=== PATIENT | female | born 1930 | race Caucasian/White ===

== ENCOUNTER 2017-01-15 12:11 | Inpatient (IN) | payer MEDICARE ==
[2017-01-15] MEDS ORDERED: Protamine Sulfate 50 MG/5 ML VIAL ONE (13:02)
[2017-01-15] MEDS ORDERED: Heparin 5,000 UNITS/ML VIAL ONE (13:02)
[2017-01-15 13:19] LABS: #Basophils 0.1 thou/uL (0.0-0.2); #Eosinphils 0.1 thou/uL (0.0-0.7); #Lymphocytes 1.8 thou/uL (1.20-3.40); #Monocytes 0.5 thou/uL (0.11-0.59); #Neutrophils 2.3 thou/uL (1.40-6.50); %Basophils 1.2 % (0.0-1.0); %Eosinophils 1.1 % (0.0-10.0); %Lymphocytes 38.5 % (21.0-51.0); %Monocytes 11.2 % (0.0-10.0); Hematocrit 43.2 % (36.0-47.0); Mean Platelet Volume 6.9 fL (7.4-10.4); Red Blood Cell (RBC) Count 4.69 mill/uL (4.20-5.40); White Blood Cell (WBC) Count 4.7 thou/uL (4.8-10.8)
[2017-01-15] MEDS ORDERED: Midazolam HCl 2 mg/2 ml Vial ONE (13:40)
[2017-01-15] MEDS ORDERED: Fentanyl 250 MCG/5 ML VIAL ONE (13:40)
[2017-01-15 13:43] LABS: Anion Gap 11 mmol/L (10-20); BUN (Urea Nitrogen) 15 mg/dL (9.8-20.1); Calc. Creatinine Clearance 38 mL/min (70-130); Calcium 9.7 mg/dL (7.8-10.44); Carbon Dioxide 30 mmol/L (23-31); Chloride 104 mmol/L (98-107); Estimated GFR-MDRD 49
[2017-01-15] MEDS ORDERED: Labetalol HCl 100 MG/20 ML SYR ONE (14:05)
[2017-01-15] MEDS ORDERED: ePHEDrine/0.9% NaCl/PF SYRINGE 50 mg/10 ml ONE (14:05)
[2017-01-15] MEDS ORDERED: Propofol 200 MG/20 ML VIAL ONE (14:05)
[2017-01-15] MEDS ORDERED: Lidocaine 1% PF 5 ML VIAL ONE (14:05)
[2017-01-15] MEDS ORDERED: Glycopyrrolate 0.2 MG/ML 5 ML SYRINGE ONE (14:05)
[2017-01-15] MEDS ORDERED: Dexamethasone 20 MG/5 ML VIAL ONE (14:05)
[2017-01-15] MEDS ORDERED: Ondansetron HCl/PF 4 MG/2 ML Vial ONE (14:05)
[2017-01-15] MEDS ORDERED: Labetalol HCl 100 MG/20 ML VIAL ONE (15:01)
[2017-01-15] MEDS ORDERED: Promethazine HCl 25 MG/ML VIAL IM PRN ×2 (16:38→18:17)
[2017-01-15] MEDS ORDERED: Ondansetron HCl/PF 4 MG/2 ML Vial IVP PRN ×2 (16:38→18:17)
[2017-01-15] MEDS ORDERED: Promethazine HCl 25 MG/ML VIAL SLOW IVP PRN (16:38)
[2017-01-15] MEDS ORDERED: DOPamine 400 MG/D5W 250 ML 250 ML IVPB PRN (18:17)
[2017-01-15] MEDS ORDERED: Phenylephrine 10 MG/NS 250 ML 250 ML IVPB PRN (18:17)
[2017-01-15] MEDS ORDERED: Acetaminophen 325 MG TAB PO PRN (18:17)
[2017-01-15] MEDS ORDERED: Nitroglycerin 50 MG/250 ML BOT 250 ML IVPB PRN (18:17)
[2017-01-15] MEDS ORDERED: Insulin Regular 300 UNITS/3 ML VIAL SC PRN (18:17)
[2017-01-15] MEDS ORDERED: Sodium Chloride 0.9% 1,000 ML IV SCH (18:17)
[2017-01-15] MEDS ORDERED: HYDROcodone/Acetaminophen 5/325 mg Tablet PO PRN ×2 (18:17)
[2017-01-15] MEDS ORDERED: Morphine Sulfate 2 MG/ML SYRINGE SLOW IVP PRN ×2 (18:17)
[2017-01-15] MEDS ORDERED: Fentanyl 100 MCG/2 ML VIAL SLOW IVP PRN ×2 (18:17)
[2017-01-15 18:41] VITALS: BMI 22.4
--- NOTE | 2017-01-15 19:36 | OP ---
PREOPERATIVE DIAGNOSIS: Severe to critical right coronary artery stenosis. SURGEON: Unruly Hwang M.D. SIGN ERECTOR: None. POSTOPERATIVE DIAGNOSIS: Severe to critical right coronary artery stenosis. COUNTS: Sponge and needle counts Correct. ANESTHESIA: General. OPERATION PERFORMED: Right carotid endarterectomy with bovine pericardium patch angioplasty. FINDINGS AT OPERATION: Near occlusive calcified and friable plaque involving the bulb and proximal ICA. Additionally, extensive calcified plaque involved the distal 4-5 cm of the common carotid artery. PROCEDURE IN DETAIL: The patient was taken to the operating room. Following the induction of general endotracheal anesthesia, the patient was prepped and draped in the usual sterile fashion. Skin incision was made parallel to the anterior border of the sternocleidomastoid muscle and deepened through the subcutaneous tissues and platysma. Carotid sheath was entered, identifying the vagus nerve in its proper posterior position. Isolation of the CCA, ECA, and ICA was performed. Hypoglossal nerve was visualized, however, not manipulated. Heparin dose was given. Fine vascular clamps were applied to the above- mentioned vessels. Arteriotomy was created extending across the bulb and ICA to a point above the plaque. The #12 shunt was employed. The arteriotomy had to be carried down the common carotid artery to a point below the nonocclusive but calcified plaque to permit clamping. Endarterectomy was then performed in standard fashion. An excellent feathering point was achieved in the ICA, however, posterior intima was tacked with two 7-0 Prolene sutures. Meticulous attention was made to retrieving all residual debris including before and after irrigation with heparinized saline. The arteriotomy was then closed with the bovine pericardium patch and running 6-0 Prolene suture. Prior to securing the patch the shunt was removed, the ICA backflushed, and the site again irrigated with heparinized saline. Clamps were removed from the ECA, CCA, and ICA in that order. Heparin was partially reversed with protamine. Copious irrigation was performed. Meticulous hemostasis was assured. Incision was then closed in layers with running 2-0 Vicryl sutures followed by skin closure with a 4-0 Vicryl subcuticular stitch. Dermabond was applied. The patient was subsequently awakened and taken to the recovery room. Blood loss negligible. MTDD
[2017-01-15] MEDS ORDERED: Clopidogrel Bisulfate 75 MG TAB PO SCH (20:00)
[2017-01-15] MEDS: Clindamycin/D5W 900 MG in Premix Bag 1 BAG IVPB SCH (20:43)
[2017-01-15] MEDS ORDERED: Atorvastatin Calcium 40 MG TAB PO SCH (21:00)
[2017-01-16] MEDS: Clindamycin/D5W 900 MG in Premix Bag 1 BAG IVPB SCH ×2 (01:15→08:25)
[2017-01-16 07:26] VITALS: TEMP 98.2
[2017-01-16] MEDS ORDERED: Ferrous Sulfate 325 MG TAB PO SCH (08:00)
[2017-01-16 08:34] VITALS: BP 157/79
[2017-01-16] MEDS ORDERED: Clopidogrel Bisulfate 75 MG TAB PO SCH (09:00)
[2017-01-16] MEDS ORDERED: CLOPIDOGREL BISULFATE PO SCH (09:00)
[2017-01-16] MEDS ORDERED: Cyanocobalamin (Vitamin B-12) 1,000 MCG TAB PO SCH (09:00)
[2017-01-16] MEDS ORDERED: Aspirin 325 mg Enteric Coated Tablet PO SCH (09:00)
[2017-01-16] MEDS ORDERED: Aspirin 325 MG TAB PO SCH (09:00)
[2017-01-16] MEDS ORDERED: Lisinopril 20 MG TAB PO SCH (09:00)
[2017-01-16] MEDS ORDERED: Furosemide 20 MG TAB PO SCH (09:00)
--- NOTE | 2017-01-16 12:13 | DIS ---
REASON FOR ADMISSION: Right carotid endarterectomy. CLINICAL RESUME: The patient is an 86-year-old female found to have severe bilateral carotid artery disease. Recommendation was made to proceed with staged repairs. Yesterday, she was admitted and underwent right CEA with bovine pericardium patch angioplasty. See operative report for details. H er postoperative course has been unremarkable and as of today, she was considered stable for dischar ge. Follow up will be arranged in our office in 2 weeks or sooner p.r.n. DIET: 1800 calorie ADA. ACTIVITY: Light for the next 4-5 days. WOUND CARE: As instructed. MEDICATIONS: She is to resume her complete home regimen without change. This includes a daily aspi rin and Plavix.
== END 2017-01-16 10:52 | disposition home or self-care (01) | DRG 39 ==
LOC: SURG A 12:11 → CCU 17:42
PROVIDERS: ADMIT Thoracic Surgery (Cardiothoracic Vascular Surgery); ATTEND Thoracic Surgery (Cardiothoracic Vascular Surgery)
PROC: 03CK0ZZ Extirpation of Matter from Right Internal Carotid Artery, Open Approach (ICD-10-PCS; principal; 2017-01-15)
PROC: 03CH0ZZ Extirpation of Matter from Right Common Carotid Artery, Open Approach (ICD-10-PCS; 2017-01-15)
PROC: 03UK0KZ Supplement Right Internal Carotid Artery with Nonautologous Tissue Substitute, Open Approach (ICD-10-PCS; 2017-01-15)
DX: I65.23 Occlusion and stenosis of bilateral carotid arteries (principal); I48.0 Paroxysmal atrial fibrillation; E11.9 Type 2 diabetes mellitus without complications; I10 Essential (primary) hypertension; I25.10 Atherosclerotic heart disease of native coronary artery without angina pectoris; E78.5 Hyperlipidemia, unspecified
CPT/HCPCS: 36415; 36416; 80048; 85025; J0360; J1100; J1644; J2001; J2250; J2405; J2704; J2720; J3010; J3490; J7050

== ENCOUNTER 2017-02-27 09:13 | Inpatient (IN) | payer MEDICARE ==
[2017-02-28] MEDS ORDERED: Levofloxacin 500 mg/D5W 100 ml Premix Bag ONE (06:31)
[2017-02-28] MEDS ORDERED: Clindamycin/D5W 900 mg/50 ml Premix Bag ONE (06:31)
[2017-02-28] MEDS ORDERED: Heparin 5,000 UNITS/ML VIAL ONE (06:38)
[2017-02-28] MEDS ORDERED: Protamine Sulfate 50 MG/5 ML VIAL ONE (06:38)
[2017-02-28] MEDS ORDERED: Fentanyl 100 MCG/2 ML VIAL ONE (06:58)
[2017-02-28] MEDS ORDERED: hydrALAZINE 20 MG/ML VIAL ONE (09:51)
[2017-02-28] MEDS ORDERED: Promethazine HCl 25 MG/ML VIAL IM PRN ×2 (10:15→11:18)
[2017-02-28] MEDS ORDERED: Promethazine HCl 25 MG/ML VIAL SLOW IVP PRN (10:15)
[2017-02-28] MEDS ORDERED: Ondansetron HCl/PF 4 MG/2 ML Vial IVP PRN ×2 (10:15→11:18)
[2017-02-28] MEDS ORDERED: Insulin Regular 300 UNITS/3 ML VIAL SC PRN (11:18)
[2017-02-28] MEDS ORDERED: Phenylephrine 10 MG/NS 250 ML 250 ML IVPB PRN (11:18)
[2017-02-28] MEDS ORDERED: Nitroglycerin 50 MG/250 ML BOT 250 ML IVPB PRN (11:18)
[2017-02-28] MEDS ORDERED: Acetaminophen 325 MG TAB PO PRN (11:18)
[2017-02-28] MEDS ORDERED: Fentanyl 100 MCG/2 ML VIAL SLOW IVP PRN ×2 (11:18)
[2017-02-28] MEDS ORDERED: HYDROcodone/Acetaminophen 5/325 mg Tablet PO PRN ×2 (11:18)
[2017-02-28] MEDS ORDERED: DOPamine 400 MG/D5W 250 ML 250 ML IVPB PRN (11:18)
[2017-02-28] MEDS: Clindamycin/D5W 900 MG in Premix Bag 1 BAG IVPB SCH ×2 (11:50→17:41)
[2017-02-28] MEDS: Sodium Chloride 0.9% 1,000 ML IV SCH (11:56)
[2017-02-28] MEDS: hydrALAZINE 20 MG/ML VIAL SLOW IVP PRN (11:59)
[2017-02-28] MEDS ORDERED: Morphine 2 mg/2ml in 0.9% NaCl PF SYRINGE IVP PRN (12:00)
[2017-02-28 12:11] VITALS: BMI 22.6
--- NOTE | 2017-02-28 12:46 | OP ---
PREOPERATIVE DIAGNOSIS: Severe left carotid artery stenosis. SURGEON: Unruly Hwang M.D. PIT CLERK: None. POSTOPERATIVE DIAGNOSIS: Severe left carotid artery stenosis. SPONGE AND NEEDLE COUNTS: Correct. ANESTHESIA: General. OPERATION PERFORMED: Left carotid endarterectomy with bovine pericardium patch angioplasty. FINDINGS AT OPERATION: Calcified plaque involving the bulb and proximal ICA. DESCRIPTION OF OPERATION: The patient was taken to the operating room. Following the induction of general endotracheal anesthesia, the patient was prepped and draped in the usual sterile fashion. Skin incision was made parallel to the anterior border of the sternocleidomastoid muscle and deepened through the subcutaneous tissues and platysma. Carotid sheath was entered, identifying the vagus nerve in its proper posterior position. Isolation of the CCA, ECA, and ICA was performed. Hypoglossal nerve was visualized, however, not manipulated. Common facial vein was divided between fine silk ties and Hemoclips. Bifurcation was notably high as expected based on the CTA. Heparin dose was given. Fine vascular clamps were applied to the above-mentioned vessels. Arteriotomy was created across the bulb and ICA to a point above the plaque. The #12 shunt was employed. Endarterectomy was then performed in standard fashion. An excellent feathering point was achieved in the ICA requiring no tacking sutures. Meticulous attention was made to retrieving all residual debris including before and after irrigation with heparinized saline. The arteriotomy was then closed with the bovine pericardium patch and running 6- 0 Prolene suture. Prior to securing the patch the shunt was removed, the ICA backflushed, and the site again irrigated with heparinized saline. Clamps were removed from the ECA, CCA, and ICA in that order. Heparin was partially reversed with protamine. Copious irrigation was performed. Meticulous hemostasis was assured. Wound was then closed in layers with running 2-0 Vicryl sutures followed by skin closure with a 4-0 Monocryl subcuticular stitch. Dermabond was applied. The patient was subsequently awakened, extubated, and taken to recovery room. Blood loss negligible. MTDD
[2017-02-28] MEDS: hydrALAZINE 25 MG TAB PO SCH ×3 (13:22→21:05)
[2017-02-28] MEDS: metFORMIN 500 MG TAB PO SCH (16:33)
[2017-02-28] MEDS ORDERED: Atorvastatin Calcium 40 MG TAB PO SCH (21:00)
[2017-03-01] MEDS: hydrALAZINE 20 MG/ML VIAL SLOW IVP PRN ×2 (00:17→06:17)
[2017-03-01] MEDS: Clindamycin/D5W 900 MG in Premix Bag 1 BAG IVPB SCH ×2 (00:18→05:04)
[2017-03-01] MEDS: Sodium Chloride 0.9% 1,000 ML IV SCH (00:18)
[2017-03-01 00:21] VITALS: BP 160/44
[2017-03-01 07:25] VITALS: TEMP 98.1
[2017-03-01] MEDS: hydrALAZINE 25 MG TAB PO SCH (07:48)
[2017-03-01] MEDS: metFORMIN 500 MG TAB PO SCH (07:49)
[2017-03-01] MEDS ORDERED: Ferrous Sulfate 325 MG TAB PO SCH (08:00)
[2017-03-01] MEDS ORDERED: Clopidogrel Bisulfate 75 MG TAB PO SCH (09:00)
[2017-03-01] MEDS ORDERED: Lisinopril 20 MG TAB PO SCH (09:00)
[2017-03-01] MEDS ORDERED: Cyanocobalamin (Vitamin B-12) 1,000 MCG TAB PO SCH (09:00)
[2017-03-01] MEDS ORDERED: Aspirin 325 MG TAB PO SCH (09:00)
[2017-03-01] MEDS ORDERED: Furosemide 20 MG TAB PO SCH (09:00)
--- NOTE | 2017-03-01 14:22 | DIS ---
REASON FOR ADMISSION: Left carotid endarterectomy. CLINICAL RESUME: The patient is an 86-year-old female found to have severe bilateral carotid artery disease. She underwent right CEA with bovine pericardium patch angioplasty on 01/15/2017. Yesterday, she was admitted and underwent left CEA with bovine pericardium patch angioplasty. See operative report for details. Her postoperative course has been unremarkable and as of today, she was considered stable for discharge. Follow up will be arranged in my office in 2 weeks or sooner p.r.n. DIET: 1800-calorie ADA. WOUND CARE: As instructed. ACTIVITY: Light for the next 4-5 days. DISCHARGE MEDICATIONS: She is to resume her completed home regimen without change. This includes daily 325 mg Ecotrin and Plavix 75 mg. MTDD
== END 2017-03-01 09:45 | disposition home or self-care (01) | DRG 39 ==
LOC: EDSTATUS 14:51 → SURG A 02-28 05:54 → CCU 02-28 10:20
PROVIDERS: ADMIT Thoracic Surgery (Cardiothoracic Vascular Surgery); ATTEND Thoracic Surgery (Cardiothoracic Vascular Surgery)
PROC: 03CL0ZZ Extirpation of Matter from Left Internal Carotid Artery, Open Approach (ICD-10-PCS; principal; 2017-02-28)
PROC: 03UL0KZ Supplement Left Internal Carotid Artery with Nonautologous Tissue Substitute, Open Approach (ICD-10-PCS; 2017-02-28)
DX: I65.22 Occlusion and stenosis of left carotid artery (principal); E11.51 Type 2 diabetes mellitus with diabetic peripheral angiopathy without gangrene; I48.0 Paroxysmal atrial fibrillation; Z98.890 Other specified postprocedural states; Z95.1 Presence of aortocoronary bypass graft; Z79.02 Long term (current) use of antithrombotics/antiplatelets; Z79.82 Long term (current) use of aspirin; I25.10 Atherosclerotic heart disease of native coronary artery without angina pectoris; I10 Essential (primary) hypertension; E78.5 Hyperlipidemia, unspecified
CPT/HCPCS: 36416; J0360; J1642; J1644; J1956; J2405; J2720; J3010; J3490

== ENCOUNTER 2017-09-09 12:49 | Inpatient (IN) | payer MEDICARE ==
[2017-09-09 13:24] LABS: #Lymphocytes 1.1 thou/uL (1.20-3.40); #Monocytes 0.9 thou/uL (0.11-0.59); #Neutrophils 16.1 thou/uL (1.40-6.50); %Basophils 0.2 % (0.0-1.0); %Lymphocytes 6.2 % (21.0-51.0); %Monocytes 4.7 % (0.0-10.0); %Neutrophils 88.9 % (42.0-75.0); Mean Corpuscular HGB CONC 34.4 g/dL (32.0-36.0); Mean Corpuscular Hemoglobin 29.8 pg (27.0-31.0); Mean Corpuscular Volume 86.6 fl (81.0-99.0); Mean Platelet Volume 7.6 fL (7.4-10.4); Platelet Count 313 thou/uL (130-400); RBC Distribution Width 12.3 % (11.5-14.5); Red Blood Cell (RBC) Count 5.38 mill/uL (4.20-5.40); White Blood Cell (WBC) Count 18.1 thou/uL (4.8-10.8)
[2017-09-09 13:56] LABS: Bilirubin Small (Negative); Blood, Urine Moderate (Negative); Clarity Cloudy (Clear); Glucose, Urine (Dipstick) 100 mg/dL (Negative); Leukocyte Trace (Negative); Nitrite Negative (Negative); Protein, Urine (Dipstick) > or equal to 300 mg/dL (Neg-Trace); Urobilinogen 0.2 mg/dL (0.2-1.0)
[2017-09-09 13:58] LABS: PTT 23.9 SEC (22.9-36.1); Prothrombin Time 13.6 SEC (12.0-14.7)
[2017-09-09 14:07] LABS: Anion Gap 26 mmol/L (10-20); BUN (Urea Nitrogen) 58 mg/dL (9.8-20.1); CK (CPK) 375 U/L (29-168); Calc. Creatinine Clearance 0 mL/min (70-130); Calcium 9.5 mg/dL (7.8-10.44); Carbon Dioxide 20 mmol/L (23-31); Chloride 95 mmol/L (98-107); Estimated GFR-MDRD 13; Glucose 526 mg/dL (83-110); Potassium 4.3 mmol/L (3.5-5.1); Sodium 137 mmol/L (136-145)
[2017-09-09 14:08] LABS: Specific Gravity, Urine 1.022 (1.002-1.036)
--- NOTE | 2017-09-09 14:08 | RAD ---
PORTABLE AP CHEST X-RAY: 09/09/2017 HISTORY: Altered mental status. The patient was found on the bathroom floor. Confusion. COMPARISON: None available. FINDINGS: Post surgical changes related to CABG are noted. The cardiac silhouette and pulmonary vasculature ar e within normal limits. Calcifications overly each lung apex, which could be related to vascular harley cifications or possibly calcified pleural thickening. Calcified granuloma overlies the lateral right mid lung zone. Vascular calcifications overly the right axillary region, as well as involve the tho racic aorta. Mild degenerative changes are seen in the spine. IMPRESSION: No acute cardiopulmonary process. POS: [facility]
--- NOTE | 2017-09-09 14:10 | CT ---
BRAIN CT WITHOUT IV CONTRAST: HISTORY: An 87-year-old female with altered mental status. Patient found on bathroom floor. FINDINGS: Bilateral atrophy and chronic white matter ischemic changes. There are a few punctate lacunar infarc ts. No mass or midline shift. No intraaxial or extraaxial hemorrhage. IMPRESSION: Atrophy and chronic white matter ischemic change. No mass, bleed, or other acute process. POS: [facility]
[2017-09-09 14:11] LABS: Bacteria/HPF 4+ HPF (None Seen); WBC/HPF 21-50 HPF (0-3)
[2017-09-09 14:12] LABS: Crystals/HPF 2+ AMORPH URATES HPF (Negative)
[2017-09-09 14:12] LABS: CKMB 11.4 ng/mL (0-6.6); Troponin I 1.102 ng/mL (< 0.028)
[2017-09-09 14:13] LABS: Hyaline Casts/LPF 0-3 HYALINE CAST LPF (0-3 Hyaline); Other Casts/LPF 4-6 COARSE GRAN LPF (0-3 Hyaline)
[2017-09-09] MEDS ORDERED: Insulin Regular 300 UNITS/3 ML VIAL ONE (14:16)
[2017-09-09] MEDS ORDERED: Aspirin 325 MG TAB ONE (14:16)
[2017-09-09] MEDS ORDERED: Ciprofloxacin Lactate/D5W 400 mg/200 ml Premix ONE (14:25)
--- NOTE | 2017-09-09 14:25 | CT ---
CERVICAL SPINE CT WITHOUT IV CONTRAST: History: 87-year-old female with history of altered mental status, found on floor in bathroom. FINDINGS: Multilevel disc osteophytosis and facet arthrosis, evidence for spondylosis. Prominent vascular calci fications. Surgical clips in neck regions. No evidence for acute fracture or facet dislocation. Focal disc osteophyte centrally at C4-5 with some up to moderate canal, lateral recess, and foraminal sten osis at C5-6 and C6-7. Multiple low attenuation nodules in both right and left lobes of thyroid up to 1.1 cm on the left side. IMPRESSION: No acute fracture or facet dislocation. Cervical spondylosis with some variable severity multilevel c anal, lateral recess, and foraminal stenosis. Multiple nodules in right and left lobes of the thyroid up to 1.1 cm on the left. POS: [facility]
[2017-09-09] MEDS ORDERED: Ondansetron HCl/PF 4 MG/2 ML Vial IVP PRN ×2 (16:20→18:29)
[2017-09-09] MEDS ORDERED: Ondansetron ODT 4 MG TAB SL PRN (16:20)
[2017-09-09] MEDS ORDERED: Acetaminophen 325 MG TAB PO PRN (16:20)
[2017-09-09] MEDS ORDERED: Sodium Chloride 0.9% 1,000 ML IV SCH (16:20)
[2017-09-09 16:31] VITALS: BMI 22.9
[2017-09-09] MEDS ORDERED: Dextrose 50% Abboject 50 ML SYRINGE SLOW IVP PRN (17:00)
[2017-09-09] MEDS ORDERED: HumaLOG 300 UNITS/3 ML VIAL SC PRN (17:00)
[2017-09-09] MEDS ORDERED: Dextrose 5% in Water 1,000 ML IV PRN (17:00)
[2017-09-09] MEDS: Sodium Chloride 0.9% 1,000 ML IV SCH (18:08)
[2017-09-09] MEDS: HumaLOG 300 UNITS/3 ML VIAL SC PRN (18:15)
[2017-09-09 18:20] LABS: Troponin I 0.826 ng/mL (< 0.028)
[2017-09-09] MEDS ORDERED: Senokot 8.6 MG TAB PO PRN ×2 (18:29→18:31)
[2017-09-09] MEDS ORDERED: Calcium Carbonate 500 MG ChewTAB PO PRN (18:29)
[2017-09-09] MEDS ORDERED: Mag-Al 1200 mg/1200 mg/30 ML UDCUP PO PRN (18:29)
[2017-09-09] MEDS ORDERED: Bisacodyl 5 MG TAB PO PRN ×2 (18:29→18:31)
[2017-09-09] MEDS ORDERED: Benzonatate 100 MG CAP PO PRN (18:31)
[2017-09-09] MEDS ORDERED: Diabetic Tussin 200 MG/10 ML UDCUP PO PRN (18:31)
[2017-09-09] MEDS ORDERED: Loratadine 10 MG TAB PO PRN (18:31)
[2017-09-09] MEDS ORDERED: hydrALAZINE 20 MG/ML VIAL SLOW IVP PRN (18:31)
--- NOTE | 2017-09-09 19:31 | HP ---
PRIMARY CARE PHYSICIAN: Nessa Bo MD CHIEF COMPLAINT: Found down on the floor, slurred speech, altered mental status. HISTORY OF PRESENTING ILLNESS: Ms. Mireles is a pleasant 87-year-old female with history of hypertens ion; diabetes type 2; chronic anemia; peripheral vascular disease; and history of coronary artery dis ease, status post bypass surgery in 1994 who presented to the emergency room in [place] with the above-mentioned complaint. Ms. Mireles was brought in by her son to the [place] Emergency Room today after he found her o n the floor in the bathroom today. He reports that normally she is very active and alert, oriented x 3, but when he checked on her this morning, she was found down on the floor and was having some confu barbara. He brought her to the emergency room. He also reported some slurred speech when he found her. The patient is unable to give any history as she still is having some difficulty recalling the even ts, but the patient and the son they both report that she has been in her usual health up until this morning. She denies any recent illnesses, fever, chills, cough, nausea, vomiting, diarrhea, abdomina l pain. She denies any dysuria, frequency, or urgency. In the emergency room upon presentation, she was hemodynamically stable with a blood pressure of 152/ 65, pulse of 87, and saturating 95% on room air. Her initial workup included a CT scan of the brain, which did not show any acute abnormality. A chest x-ray was also done, which was negative for any a cute processes. CT scan of the cervical spine was also unremarkable. She was however found to have multiple lab abnormalities including leukocytosis with a WBC count of 18.1 and serum chemistry showin g acute renal insufficiency with a BUN of 58 and creatinine of 3.47. The patient does not have any h istory of chronic kidney disease per se. Her blood sugar was found to be elevated at 526 and her CK- MB and troponin as well as total creatinine kinase was elevated. There was also some concern of stro ke. The patient received aspirin and ciprofloxacin in the emergency room and was transferred to our facility for admission for above-mentioned complaints and further workup. PAST MEDICAL HISTORY: 1. Hypertension. 2. History of peripheral vascular disease, status post carotid endarterectomy bilaterally by Dr. Eris alcazar. 3. History of coronary artery disease, status post CABG in 1994. 4. Chronic anemia. 5. History of cellulitis in right lower extremity. 6. Dyslipidemia. PAST SURGICAL HISTORY: 1. Bilateral carotid endarterectomy, 2017. 2. Stenting in the left leg. 3. Open heart surgery in 1994. 4. Back surgery in 1992. PSYCHIATRIC HISTORY: No anxiety or depression. SOCIAL HISTORY: She lives by herself and is normally able to take care of her ADLs and IADLs. Famil y lives close by. She uses a cane to walk around and is active in the society. Has no history of dr galvan, tobacco, or alcohol abuse. FAMILY HISTORY: No significant family history of stroke or coronary artery disease. ALLERGIES: CODEINE, PENICILLIN, SULFONAMIDE. CURRENT MEDICATIONS: Further need to be confirmed, but as per the ER record, Lasix 20 mg daily; chanel nopril 20 mg b.i.d.; Plavix 75 mg daily; isosorbide dinitrate 120 mg daily; atorvastatin 40 mg daily; ferrous sulfate 325 mg daily; vitamin B12, 1000 mcg daily; hydralazine 50 mg 4 times a day; Glucotro l XL 2.5 mg daily. REVIEW OF SYSTEMS: It is a little bit difficult to obtain as the patient is still somewhat altered, but a 12-point review of systems is done and negative except for those mentioned in the history and p hysical. Constitutional: Weight loss or gain, ability to conduct usual activities. Skin: Rash, itching. Eyes: Double vision, pain. ENT/Mouth: Nose bleeding, neck stiffness, pain, tenderness. Cardiovascular: Palpitations, dyspnea on exertion, orthopnea. Respiratory: Shortness of breath, wheezing, cough, hemoptysis, fever or night sweats. Gastrointestinal: Poor appetite, abdominal pain, heartburn, nausea, vomiting, constipation, or diarrhea. Genitourinary: Urgency, frequency, dysuria, nocturia. Musculoskeletal: Pain, swelling. Neurologic/Psychiatric: Anxiety, depression. Allergy/Immunologic: Skin rash, bleeding tendency. LABORATORY DATA: CBC shows WBC at 18.1 with 88% neutrophils, otherwise unremarkable. Her serum chem istry showed chloride of 95, bicarbonate 20, anion gap of 26, BUN 58, creatinine 3.47, blood sugar 52 6 with repeat blood sugar of 257, creatinine kinase 375, CK-MB 11.4, and troponin 1.102 with repeat t roponin of 0.826. Chest x-ray by my review has no evidence to suggest pulmonary infiltrate, effusion, or edema. CT sca n of the brain by my review has no acute hemorrhage or infarction. Twelve-lead EKG by my review has some ST depression in the lateral leads, sinus rhythm at 88 beats per minute. PHYSICAL EXAMINATION: VITAL SIGNS: Most recent vital signs, temperature 98.8, pulse of 84, respirations 16, saturating 94% on room air, blood pressure 152/70. GENERAL: No acute distress. She is awake, oriented to self and place. She is able to answer simple question and follow the simple commands. She is still having difficulty focusing on the question as ked. HEENT: Mucous membranes are slightly dry. No oropharyngeal exudate or erythema. Head is normocepha lic, atraumatic. Pupils equal, reactive to light and accommodation. Extraocular movement intact. NECK: Supple without any lymphadenopathy, JVD, or bruit. CHEST: Clear to auscultation without any wheezing, rales, or rhonchi. CARDIOVASCULAR: Rate and rhythm is regular without any murmur, rubs, or gallops. ABDOMEN: Slightly tender to palpation diffusely. EXTREMITIES: Free of any cyanosis, clubbing, or edema. NEUROLOGIC: Nonfocal. She is oriented to self and place. PSYCHIATRIC: No anxiety or depression. Normal affect. SKIN: Free of any rashes or bruises. Feel warm and dry to touch. VASCULAR: +2 pedal pulses felt bilaterally. IMPRESSION AND PLAN: 1. Altered mental status, likely multifactorial. The patient's blood work suggest significant dehyd ration along with a urinary tract infection. Cardiac and urological etiology also cannot be ruled ou t. She will be admitted for further workup on the telemetry floor. We will obtain an MRI of the bra in to rule out acute ischemic stroke. Further workup would depend upon the results of the various bl ood work and imaging studies. She seems to be returning back to her baseline. To complete the natalee p of the stroke, we will also order transthoracic echocardiogram and carotid Doppler ultrasound. 2. Kes-PJ-krvazbees myocardial infarction, likely secondary to acute rhabdomyolysis and sepsis from urinary tract infection. Continue to trend serial cardiac enzyme and we will order an echocardiogram . We will also request consultation with Cardiology given her history of coronary artery disease in the past. We will continue her on aspirin as well as isosorbide, statin, and Plavix for now. Hold l isinopril in the light of acute renal insufficiency. 3. Sepsis, likely secondary to urinary tract infection. We will start her on IV antibiotics. Urine culture and blood cultures have been obtained and we will follow the results. 4. Acute renal insufficiency, most likely secondary to dehydration and urinary tract infection. Her baseline renal function was 1.09 in 01/2017. Likely this is all acute in origin. We will start her on intravenous fluids and monitor her renal function closely. Avoid any nephrotoxic agents. We himanshu rey also request consultation with Nephrology for further recommendations. 5. Hyperglycemia. Once again, secondary to dehydration likely. We will start her on IV fluids and insulin sliding scale and continue her glipizide and monitor Accu-Cheks closely. 6. Rhabdomyolysis, mild, likely secondary to fall. Continue IV fluids and monitor. 7. Fall. She will be on fall precautions while here. We will have OT and PT evaluate her as well. 8. History of hypertension. Restart home medication except for lisinopril given acute kidney injury and monitor closely. Add p.r.n. antihypertensives. 9. History of coronary artery disease. Continue her home medication as above along with aspirin. 10. History of peripheral vascular disease. Continue aspirin and Plavix. 11. Code status: FULL CODE as discussed with the son. The patient is not able to provide any speci fic answer to this question and it is very confusing for her. The son wants everything done to save his mother's life. 12. PRN medication orders and supportive care. 13. Deep venous thrombosis and gastrointestinal prophylaxis. DISPOSITION: Ms. Mireles is currently being admitted to the hospital for hyperglycemia, acute renal i nsufficiency, dehydration, and [id number] myocardial infarction likely secondary to sepsis. Es timated length of stay is at least 2-3 midnights. Further management will depend upon her clinical c ourse.
[2017-09-09] MEDS ORDERED: Amlodipine 10 MG TAB PO SCH (20:15)
[2017-09-09 20:27] LABS: Critical Call Chem Troponin I RESULT DECREASING; Troponin I 0.763 ng/mL (< 0.028)
[2017-09-09] MEDS: Heparin 5,000 UNITS/ML VIAL SC SCH (20:28)
[2017-09-09] MEDS ORDERED: Prevnar 13-Val Conj/PF 0.5 ML SYRINGE IM ONE (21:00)
[2017-09-09] MEDS ORDERED: Atorvastatin Calcium 40 MG TAB PO SCH (21:00)
--- NOTE | 2017-09-09 21:45 | ULT ---
CAROTID DOPPLER: 09/09/17 Ultrasound and doppler studies performed on the extracranial carotid arteries. Color doppler with spe ctral analysis and velocity recordings obtained. INDICATIONS: Stroke. Intimal thickening and exiting plaque seen in both extracranial carotid systems. No increased velocit ies recorded in either internal carotid artery. Increased velocities are recorded in both external ca rotid arteries. The vertebral arteries show antegrade flow. IMPRESSION: Moderate echogenic plaque bilaterally. No evidence of hemodynamically significant stenosis identified in either internal carotid artery. POS: [facility]
[2017-09-09 23:27] LABS: Critical Call Chem Troponin I RESULT DECREASING; Troponin I 0.685 ng/mL (< 0.028)
[2017-09-10] MEDS: Sodium Chloride 0.9% 1,000 ML IV SCH ×3 (01:36→16:27)
--- NOTE | 2017-09-10 04:33 | CON ---
DATE OF CONSULTATION: 09/09/2017 CONSULTING PHYSICIAN: Dr. Raphael. REASON FOR CONSULTATION: Acute kidney injury. REASON FOR ADMISSION: Altered mentation and was found down on the floor at home. HISTORY OF PRESENT ILLNESS: This is an 87-year-old white female with history of hypertension, type 2 diabetes, chronic anemia, peripheral vascular disease, coronary artery disease, who came [facility] the hosp ital after was found down and found back at home on the floor and also was found to be confused. The patient denies any fevers, chills, nausea, vomiting, chest pain, shortness of breath now. She was f ound to have creatinine of 3.47, her last creatinine was 1.09 on 01/2017. She was also found to have a CK level of 375. PAST MEDICAL HISTORY: Positive for hypertension, peripheral vascular disease, coronary artery diseas e, chronic anemia, dyslipidemia. PAST SURGICAL HISTORY: Carotid endarterectomy bilaterally, peripheral vascular stents, CABG and back surgery. HOME MEDICATIONS: Lasix, lisinopril, Plavix, isosorbide dinitrate, atorvastatin, ferrous sulfate, vi tamin B12, hydralazine, Glucotrol. ALLERGIES: CODEINE, PENICILLIN, SULFONAMIDE. FAMILY HISTORY: No history of kidney disease. SOCIAL HISTORY: No smoking, alcohol or illicit drug abuse. REVIEW OF SYSTEMS: The following complete review of systems was negative, unless otherwise mentioned in the HPI or below: Constitutional: Weight loss or gain, ability to conduct usual activities. Sk in: Rash, itching. Eyes: Double vision, pain. ENT/Mouth: Nose bleeding, neck stiffness, pain, te nderness. Cardiovascular: Palpitations, dyspnea on exertion, orthopnea. Respiratory: Shortness of breath, wheezing, cough, hemoptysis, fever or night sweats. Gastrointestinal: Poor appetite, abdom inal pain, heartburn, nausea, vomiting, constipation, or diarrhea. Genitourinary: Urgency, frequenc y, dysuria, nocturia. Musculoskeletal: Pain, swelling. Neurologic/Psychiatric: Anxiety, depressio n. Allergy/Immunologic: Skin rash, bleeding tendency. PHYSICAL EXAMINATION: GENERAL: This is an elderly female, in no apparent distress. VITAL SIGNS: Temperature 98.3, pulse 80, respiratory rate 18, blood pressure 132/70. HEENT: Atraumatic, normocephalic. Oral mucosa is dry. NECK: Supple. CARDIOVASCULAR: S1, S2 heard. Rate and rhythm is regular. RESPIRATORY: Clear. GASTROINTESTINAL: Abdomen is soft. MUSCULOSKELETAL: No tenderness. No edema. DERMATOLOGIC: No skin rash. NEUROLOGIC: Alert and awake, slightly confused. PSYCHIATRIC: Not assessed. LABORATORY DATA: Hemoglobin 16.0, potassium is 4.3, BUN is 58, creatinine is 3.4, calcium 9.5, CK 37 5. Urine with pyuria, 3+ proteinuria. ASSESSMENT AND PLAN: 1. Acute kidney injury most likely volume depletion. Agree with hydration and avoidance of nephroto xins with close monitoring of labs. We will follow. 2. Hemoconcentration. Continue IV fluids. 3. Metabolic acidosis, most likely from hypoperfusion. 4. Elevated troponin, slightly better. 5. Pyuria, continue antibiotics and rule out any infection. Follow up cultures. Plan is to continue on IV fluids as tolerated with close monitoring of cardiorespiratory status and a voidance of nephrotoxins. We will also check a renal ultrasound given the pyuria. We will follow. Thank you for the consult.
[2017-09-10] MEDS: cloNIDine 0.1 MG TAB PO PRN ×2 (05:06→16:29)
[2017-09-10 05:51] LABS: #Lymphocytes 1.6 thou/uL (1.20-3.40); #Monocytes 1.1 thou/uL (0.11-0.59); %Basophils 0.2 % (0.0-1.0); %Eosinophils 0.1 % (0.0-10.0); %Lymphocytes 10.5 % (21.0-51.0); %Monocytes 7.5 % (0.0-10.0); %Neutrophils 81.7 % (42.0-75.0); Hemoglobin 12.1 g/dL (12.0-16.0); Mean Corpuscular HGB CONC 35.2 g/dL (32.0-36.0); Mean Corpuscular Hemoglobin 31.3 pg (27.0-31.0); Mean Corpuscular Volume 88.8 fl (81.0-99.0); Mean Platelet Volume 7.2 fL (7.4-10.4); Platelet Count 215 thou/uL (130-400); RBC Distribution Width 12.8 % (11.5-14.5); Red Blood Cell (RBC) Count 3.86 mill/uL (4.20-5.40); White Blood Cell (WBC) Count 14.7 thou/uL (4.8-10.8)
[2017-09-10 05:54] LABS: Anion Gap 12 mmol/L (10-20); BUN (Urea Nitrogen) 54 mg/dL (9.8-20.1); Calc. Creatinine Clearance 20 mL/min (70-130); Carbon Dioxide 25 mmol/L (23-31); Chloride 105 mmol/L (98-107); Estimated GFR-MDRD 25; Glucose 180 mg/dL (83-110); Potassium 3.5 mmol/L (3.5-5.1); Sodium 138 mmol/L (136-145)
--- NOTE | 2017-09-10 08:23 | CON ---
DATE OF ADMISSION: 09/09/2017 DATE OF CONSULTATION: 09/09/2017 INDICATION FOR CONSULTATION: An 87-year-old female with elevated cardiac enzymes. HISTORY OF PRESENT ILLNESS: This very unfortunate 87-year-old female who has been independent, living alone and taking care of herself, was at home and apparently fell last night in the bathroom. She was brought to the emergency room today by her son after she had the fall and also was noted to have some mental status changes. She has had a history of coronary artery disease in the past, underwent bypass surgery in 1997. She also has severe peripheral vascular disease as well as chronic anemia. She has had a stress test on 2016, which showed no evidence of ischemia. She had normal ejection fraction at that time. She had complaints of shortness of breath and chest discomfort. She has also had an AFRO, an aortofemoral runoff on 02/2016, which showed severe peripheral vascular disease in bilateral lower extremities and medical treatment was advised. At this time, her cardiac enzymes on admission were 1.1 for the troponin and now decreased down to 0.826. She also has acute renal insufficiency with a creatinine of 3.47 and on 01/2017, the creatinine was 1.09. She has what appears to be mild urinary tract infection. She denies any chest pain, but she remains confused. Her EKG does show a normal sinus rhythm with T-wave inversions which certainly could be compatible with anterior lateral ischemia. PAST MEDICAL HISTORY: Significant for coronary artery bypass grafting in 1997, severe peripheral vascular disease, hypertension, paroxysmal atrial fibrillation , chronic anemia, hyperlipidemia. She has had a stent placed in the lower extremities. She has had back surgery and she is also blind in one eye. SOCIAL HISTORY: She has been independent. She is a . She has no alcohol or tobacco abuse. ALLERGIES: PENICILLIN, SULFA and CODEINE. REVIEW OF SYSTEMS: Her most other changes do not allow for correct review of systems. She denies any significant complaints at this time. MEDICATIONS: Included Lasix 20 mg a day, lisinopril 20 mg a day, Plavix 75 mg a day, isosorbide dinitrate 20 mg tablets as she was taken 120 mg once a day, Lipitor 40 mg a day, ferrous sulfate 325 mg q. day, vitamin B12, hydralazine 50 mg 1 q.i.d., Glucotrol-XL 2.5 mg once a day. PHYSICAL EXAMINATION: GENERAL: Reveals an elderly female who is obviously still somewhat confused. She does not remember how she fell. She thinks she passed out. VITAL SIGNS: Her blood pressure is 152/70, heart rate is 84 and shows a sinus rhythm. HEENT: Shows head to be normocephalic and atraumatic. Carotid pulses are present. She has radiation to the chronic years from the aortic area did not appear to be significant bruits, but she does have some noise air which radiates from the aortic area. CHEST: Clear to auscultation without any rales, rhonchi or wheezing. CARDIOVASCULAR: Exam reveals a regular rate and rhythm. She has a 3/6 systolic murmur at the apex, also a 2/6 systolic murmur in the aortic area. There were no thrills or bruits noted. ABDOMEN: Soft and nontender with positive bowel sounds. No organomegaly or masses are noted. Femoral pulses are present. EXTREMITIES: Showed palpable femoral pulses but are decreased. I cannot palpate pedal pulses. She had no significant lower extremity edema with minimal ankle edema was present. NEUROLOGIC: The patient is confused, but did not see any gross focal motor deficits present. Her EKG as noted above shows a sinus rhythm with T-wave inversions in the anterior lateral leads, which could be compatible with anterior lateral ischemia. LABORATORY DATA: As noted above for the troponin I. Her creatinine is 3.47. Hemoglobin is 16. WBC is 18.1. IMPRESSION: 1. Possible syncopal episode due to perhaps dehydration. She will be given some IV fluids and do not see any indication. She had any significant arrhythmias. 2. Mental status changes which may be due to underlying urinary tract infection which appears to be mild, she is to be placed on antibiotics. 3. Slight elevation of cardiac enzymes which is indeterminate, which may be due to demand ischemia associated with her other acute injuries or acute renal insufficiency and possibly a follow up when appear to be the case. This could just be demand ischemia. We will need to continue whether it is trending downwards. 4. Acute kidney injury with a creatinine which is elevated from 1.09 in January to 3.47 on this admission. This will need to be repeated to evaluate her very closely. If not, she may need to be seen by the bath mixer. 5. History of coronary artery disease with bypass surgery in 1997. Hopefully, this remains stable, but somewhat concerning with the EKG changes that did not have any recent EKGs for comparison at this time. 6. History of peripheral vascular disease. She has been on aspirin and Plavix , and suggest we continue these medications since she is for medical treatment only. 7. History of hypertension. We will continue her Norvasc. 8. Hyperlipidemia. She will continue her Lipitor 40 mg a day. 9. Diabetes. She remains on insulin sliding scale and this and can be followed by the hospital service. 10. History of chronic anemia. Hemoglobin, however, at this time is very stable and does appear again maybe a reflection of some dehydration. MTDD
[2017-09-10] MEDS: Heparin 5,000 UNITS/ML VIAL SC SCH (09:00)
[2017-09-10] MEDS: Famotidine 20 MG TAB PO SCH (09:00)
[2017-09-10] MEDS: Clopidogrel Bisulfate 75 MG TAB PO SCH (09:00)
[2017-09-10] MEDS: Amlodipine 10 MG TAB PO SCH (09:00)
--- NOTE | 2017-09-10 09:08 | ULT ---
RENAL ULTRASOUND: HISTORY: Acute renal insufficiency. FINDINGS: Real-time images of the right and left kidneys were performed. The right kidney measures 10.6 cm and the left kidney 10.1 cm in size. There is a 3.8 cm left renal cyst present. The bladder was in nor mal position. A right ureter jet is identified. The left ureteral jet is never seen; however, no ev idence for obstruction of the left kidney. IMPRESSION: Increased echogenicity to both kidneys without evidence of obstruction. Changes would suggest [facility] renal parenchymal disease. POS: MG
[2017-09-10] MEDS: HumaLOG 300 UNITS/3 ML VIAL SC PRN (11:35)
--- NOTE | 2017-09-10 12:41 | PDOC.PN ---
- Subjective Encounter Start Date: 09/10/17 Encounter Start Time: 12:39 Subjective: FEELS MUCH BETTER,EAGER TO GO HOME -: no new complains.no ON events.care discussed w family -: no fever/chills.some weakness but able to move around - Objective Resuscitation Status: Resuscitation Status FULL:Full Resuscitation MAR Reviewed: Yes Vital Signs & Weight: Vital Signs (12 hours) Temp Pulse Pulse Pulse Resp BP BP 09/10/17 11:19 98.1 F 66 18 09/10/17 08:06 67 64 186/76 H 177/74 H 09/10/17 08:00 98.1 F 66 18 09/10/17 07:24 98.9 F 61 16 09/10/17 04:00 97.4 F L 73 16 BP Pulse Ox Pulse Ox 09/10/17 11:19 133/60 93 L 09/10/17 08:06 93 L 09/10/17 08:00 93 L 09/10/17 07:24 124/60 93 L 09/10/17 04:00 179/75 H 93 L Weight Weight 125 lb 6.4 oz I&O: 09/09/17 09/10/17 09/11/17 06:59 06:59 06:59 Intake Total 240 Balance 240 Result Diagrams: 09/10/17 05:29 09/10/17 05:29 Additional Labs: Accuchecks 09/10/17 09/10/17 09/09/17 10:50 05:51 21:15 POC Glucose 287 H 185 H 156 H 09/09/17 18:14 POC Glucose 257 H Microbiology 09/09/17 14:43 Venous blood - Right Arm Blood Culture - Preliminary Specimen has been received and culture in progress. No Growth to date. 09/09/17 14:38 Venous blood - Left Arm Blood Culture - Preliminary Specimen has been received and culture in progress. No Growth to date. 09/09/17 13:28 Urine Straight Catheter Urine Culture - Preliminary Presumptive Escherichia coli Laboratory Tests 09/09/17 09/09/17 09/09/17 13:05 13:05 13:05 WBC 18.1 H Creatinine 3.47 H Troponin I 1.102 H* 09/09/17 09/09/17 09/09/17 17:18 19:53 22:54 WBC Creatinine Troponin I 0.826 H* 0.763 H* 0.685 H* 09/10/17 09/10/17 05:29 05:29 WBC 14.7 H Creatinine 1.88 H Troponin I labs reviewed Phys Exam - Physical Examination Constitutional: NAD HEENT: PERRLA, moist MMs, sclera anicteric, oral pharynx no lesions Neck: no nodes, no JVD, supple, full ROM Respiratory: no wheezing, no rales, no rhonchi, clear to auscultation bilateral Cardiovascular: RRR, no significant murmur, no rub Gastrointestinal: soft, non-tender, no distention, positive bowel sounds Musculoskeletal: no edema, pulses present Neurological: non-focal, normal sensation, moves all 4 limbs Psychiatric: normal affect, A&O x 3 Skin: no rash Dx/Plan (1) Sepsis Code(s): A41.9 - SEPSIS, UNSPECIFIED ORGANISM Status: Acute (2) UTI (urinary tract infection) Status: Acute (3) MEGAN (acute kidney injury) Code(s): N17.9 - ACUTE KIDNEY FAILURE, UNSPECIFIED Status: Acute (4) Dehydration Code(s): E86.0 - DEHYDRATION Status: Acute (5) NSTEMI (non-ST elevated myocardial infarction) Code(s): I21.4 - NON-ST ELEVATION (NSTEMI) MYOCARDIAL INFARCTION Status: Acute Comment: demand ischemia from sepsis (6) DM2 (diabetes mellitus, type 2) Status: Acute (7) Altered mental status Code(s): R41.82 - ALTERED MENTAL STATUS, UNSPECIFIED Status: Resolved (8) Rhabdomyolysis Code(s): M62.82 - RHABDOMYOLYSIS Status: Acute (9) CAD (coronary artery disease) Code(s): I25.10 - ATHSCL HEART DISEASE OF [place] CORONARY ARTERY W/O ANG PCTRS Status: Chronic Comment: on ASA,plavix,statin .CHELSIE-I on hold due to MEGAN (10) HTN (hypertension) Code(s): I10 - ESSENTIAL (PRIMARY) HYPERTENSION Status: Chronic (11) PAD (peripheral artery disease) Code(s): I73.9 - PERIPHERAL VASCULAR DISEASE, UNSPECIFIED Status: Chronic - Plan plan discussed w/ family, continue antibiotics, PT/OT, out of bed/ambulate, DVT proph w/SCDs renal Fx much improved.cont IVF.monitor.hold lasix & lisinopril -: Troponin trended down.ECHO results pending -: cont ASA,plavix,statin. -: BP controlled.restart home meds -: cont empiric ABx ,follow final Cx results * .clinically better.cont supportive care * Family do not want Rehab. will arrange for Dc planning * am labs Review of Systems - Review of Systems Constitutional: weakness Eyes: negative: Pain, Vision Change, Conjunctivae Inflammation, Eyelid Inflammation, Redness, Other ENT: negative: Ear Pain, Ear Discharge, Nose Pain, Nose Discharge, Nose Congestion, Mouth Pain, Mouth Swelling, Throat Pain, Throat Swelling, Other Respiratory: negative: Cough, Dry, Shortness of Breath, Hemoptysis, SOB with Excertion, Pleuritic Pain, Sputum, Wheezing Cardiovascular: negative: chest pain, palpitations, orthopnea, paroxysmal nocturnal dyspnea, edema, light headedness, other Gastrointestinal: negative: Nausea, Vomiting, Abdominal Pain, Diarrhea, Constipation, Melena, Hematochezia, Other Genitourinary: negative: Dysuria, Frequency, Incontinence, Hematuria, Retention , Other Musculoskeletal: negative: Neck Pain, Shoulder Pain, Arm Pain, Back Pain, Hand Pain, Leg Pain, Foot Pain, Other Skin: negative: Rash, Lesions, Armando, Bruising, Other Neurological: negative: Weakness, Numbness, Incoordination, Change in Speech, Confusion, Seizures, Other - Medications/Allergies Allergies/Adverse Reactions: Allergies Allergy/AdvReac Type Severity Reaction Status Date / Time codeine Allergy Verified 02/27/17 09:15 Penicillins Allergy Verified 02/27/17 09:15 Sulfa (Sulfonamide Allergy Verified 02/27/17 09:15 Antibiotics) Medications: Current Medications Al Hydroxide/Mg Hydroxide (Maalox) 30 ml PO Q6H PRN PRN Reason: Heartburn or Indigestion Amlodipine Besylate (Norvasc) 10 mg PO DAILY [facility] Last Admin: 09/10/17 09:00 Dose: 10 mg Aspirin (Aspirin Chewable) 81 mg PO QA-[facility] Last Admin: 09/10/17 08:59 Dose: 81 mg Atorvastatin Calcium (Lipitor) 40 mg PO [facility] Benzonatate (Tessalon) 100 mg PO Q4H PRN PRN Reason: Cough Bisacodyl (Dulcolax) 10 mg PO DAILYPRN PRN PRN Reason: Constipation Calcium Carbonate (Tums) 1,000 mg PO Q4H PRN PRN Reason: Heartburn or Indigestion Clonidine (Catapres) 0.1 mg PO Q4H PRN PRN Reason: Systolic BP > 160 Last Admin: 09/10/17 05:06 Dose: 0.1 mg Clopidogrel Bisulfate (Plavix) 75 mg PO DAILY [facility] Last Admin: 09/10/17 09:00 Dose: 75 mg Cyanocobalamin (Vitamin B-12) 1,000 mcg PO DAILY [facility] Dextrose/Water (Dextrose 50%) 25 gm SLOW IVP PRN PRN PRN Reason: Hypoglycemia Famotidine (Pepcid) 20 mg PO DAILY [facility] Last Admin: 09/10/17 09:00 Dose: 20 mg Ferrous Sulfate (Feosol) 325 mg PO DAILY [facility] Glipizide (Glucotrol Xl) 2.5 mg PO DAILY [facility] Glucagon (Glucagon) 1 mg IM PRN PRN PRN Reason: Hypoglycemia Guaifenesin (Robitussin Sf) 200 mg PO Q4H PRN PRN Reason: Cough Heparin Sodium (Porcine) (Heparin) 5,000 units SC BID [facility] Last Admin: 09/10/17 09:00 Dose: 5,000 units Hydralazine HCl (Apresoline) 10 mg SLOW IVP Q4H PRN PRN Reason: Systolic BP > 170 Hydralazine HCl (Apresoline) 50 mg PO QID [facility] Dextrose/Water (D5w) 1,000 mls @ 0 mls/hr IV .Q0M PRN; As Directed PRN Reason: Hypoglycemia Sodium Chloride (Normal Saline 0.9%) 1,000 mls @ 100 mls/hr IV .Q10H [facility] Last Admin: 09/10/17 01:36 Dose: 1,000 mls Levofloxacin 250 mg/ Device 50 mls @ 100 mls/hr IVPB Q2D@0800 [facility] Insulin Human Lispro (Humalog) 0 units SC .MODERATE SLIDING SC PRN PRN Reason: Moderate Correctional Scale Last Admin: 09/10/17 11:35 Dose: 6 unit Insulin Human Lispro (Humalog) 0 units SC .BEDTIME SLIDING SC PRN PRN Reason: Bedtime Correctional Scale Isosorbide Mononitrate (Imdur) 120 mg PO DAILY [facility] Lactulose (Lactulose) 20 gm PO DAILYPRN PRN PRN Reason: Constipation Loratadine (Claritin) 10 mg PO DAILYPRN PRN PRN Reason: Sinus Symptoms Ondansetron HCl (Zofran) 4 mg IVP Q6H PRN PRN Reason: Nausea/Vomiting Senna (Senokot) 2 tab PO HSPRN PRN PRN Reason: Constipation Sodium Chloride (Flush - Normal Saline) 10 ml IVF Q12HR [facility] Sodium Chloride (Flush - Normal Saline) 10 ml IVF PRN PRN PRN Reason: Saline Flush
[2017-09-10] MEDS ORDERED: Non-Formulary Item 1 EACH (Hydralazine Hcl [Hydralazine Hcl] 50 MG) PO SCH (13:00)
--- NOTE | 2017-09-10 13:23 | MRI ---
MRI BRAIN WITHOUT CONTRAST: HISTORY: Altered mental status. COMPARISON: CT brain from the prior day. FINDINGS: On the diffusion weighted imaging sequence, there is diffusion restriction of the right centrum semio yovani, as well as of the left post-central gyrus and the pre-central gyrus, This was confirmed on the ADC map. On the susceptibility weighted imaging sequence, there are no abnormal areas of hemorrhage. The circ le of Rosario and flow voids are maintained. No hydrocephalus. No midline shift or mass effect. The globes are normal. Moderate microvascular ischemic changes. IMPRESSION: Acute infarctions of the left pre and post central gyrus, as well as of the right centrum semiovale. POS: T[facility]
[2017-09-10] MEDS: hydrALAZINE 25 MG TAB PO SCH ×3 (14:20→22:10)
--- NOTE | 2017-09-10 17:21 | PRG ---
DATE OF SERVICE: 09/10/2017 NEPHROLOGY PROGRESS NOTE SUBJECTIVE: Patient was seen and examined at bedside and overnight events noted. Patient denies any shortness of breath or chest pain or palpitation. No history of nausea or vomiting or diarrhea or f ever or chills or cramps. OBJECTIVE: GENERAL: This is an elderly female in no apparent distress. VITAL SIGNS: Temperature 98.1, pulse 65, respiratory rate 18, blood pressure 133/60. HEENT: Atraumatic, normocephalic. Oral mucosa is moist. NECK: Supple. CARDIOVASCULAR: S1, S2 heard. Rate and rhythm regular. RESPIRATORY: Clear to auscultation. GASTROINTESTINAL: Abdomen is soft. MUSCULOSKELETAL: No tenderness. No edema. DERMATOLOGIC: No skin rash. NEUROLOGIC: Alert and awake and oriented x3. No focal neurologic deficits. Moving all the extremiti es. PSYCHIATRIC: Mood and affect normal. LABORATORY DATA: Potassium is 3.5, BUN 54, creatinine 1.8. ASSESSMENT AND PLAN: 1. Acute kidney injury, most likely volume depletion, better with IV hydration. 2. Hemoconcentration. 3. Metabolic acidosis and pyuria. Follow up cultures. 4. Hypertension, stable. Renal function better. We will avoid nephrotoxins and we will follow. Okay to reduce intravenous fl uids to 50 mL per hour.
--- NOTE | 2017-09-10 18:44 | PDOC.CTH ---
Cardiology Progress Note - Subjective She is doing well. She was diagnosed with an acute stroke and this is likely the cause of her altered mentation which is already getting better. - Objective Vital Signs Temp Pulse Pulse Pulse Resp BP BP 09/10/17 18:28 98.4 F 60 18 09/10/17 16:25 98.4 F 67 18 09/10/17 11:19 98.1 F 66 18 09/10/17 08:06 67 64 186/76 H 177/74 H 09/10/17 08:00 98.1 F 66 18 09/10/17 07:24 98.9 F 61 16 BP Pulse Ox Pulse Ox 09/10/17 18:28 121/47 L 93 L 09/10/17 16:25 189/78 H 95 09/10/17 11:19 133/60 93 L 09/10/17 08:06 93 L 09/10/17 08:00 93 L 09/10/17 07:24 124/60 93 L Weight 125 lb 6.4 oz 09/09/17 09/10/17 09/11/17 06:59 06:59 06:59 Intake Total 240 Balance 240 - Physical Examination General/Neuro: NAD Neck: no JVD present Lungs: CTA, unlabored respirations Heart: RRR Abdomen: NT/ND Extremities: other: (no edema) - Telemetry Telemetry Rhythm: NSR - Labs Result Diagrams: 09/10/17 05:29 09/10/17 05:29 Troponin/CKMB CK-MB (CK-2) 11.4 ng/mL (0-6.6) H* 09/09/17 13:05 Troponin I 0.685 ng/mL (< 0.028) H* 09/09/17 22:54 - Assessment/Plan 1. Acute CVA 2. Severe carotid stenosis s/p CEA in Feb 2017 3. PVD 4. NSTEMI, demand ischemia 5. Paroxysmal afib. 6. ARF on CKD. Improving. 7. UTI PLAN: - I reviewed her records from [facility] and found an 8 beat run of an irregular heart rate on a Holter monitor in 2002 that was thought to be a small run of afib. She has never been on anticoagulation in the past. I think she is a candidate for full anticoagulation given embolic CVA and the above history. I do not think we need to do a LINQ as it will not change what we do even if no afib is found after 3 yrs of monitoring. - Would wait for about 1 or 2 weeks before starting full anticoagulation to be stated unless neurology is ok with starting sooner. - Would start Eliquis 2.5 mg BID once ready and would continue Plavix and stop aspirin. - Abx per primary team.. - Echo shows normal LV function supporting demand ischemia as cause of elevated troponins.
--- NOTE | 2017-09-10 19:38 | PDOC.EVN ---
Event Note - Event Note Event Note: Braim MRI shows Ac left sided stroke.discussedw pt and son.will transfer to stroke floor,consult neurology and stroke team
[2017-09-10] MEDS ORDERED: Atorvastatin Calcium 40 MG TAB PO SCH (21:00)
[2017-09-10] MEDS: Apixaban 2.5 MG TAB PO SCH (22:10)
[2017-09-10] MEDS: Atorvastatin Calcium 40 MG TAB PO SCH (22:10)
--- NOTE | 2017-09-11 02:50 | CON ---
DATE OF CONSULTATION: 09/10/2017 REFERRING PHYSICIAN: Lupe Raphael MD REASON FOR CONSULTATION: Stroke. HISTORY OF PRESENT ILLNESS: Ms. Mireles is a pleasant 87-year-old female who has been consu lted for evaluation of stroke. History was obtained from son who was present at bedside. Son report s that yesterday, he had gone to check on her and found her unresponsive on the floor. She had passe d out onto the bathroom floor for an unknown period of time. It is unknown whether she had any seizu re-type activities. On arrival here, she was noted to be having confusion and changes in mentation. On arrival to the emergency room, she was noted to have slightly elevated troponin. She was also no kristan to have elevated white cell count and BUN and creatinine; and her blood glucose was elevated at 5 26. She was admitted for further workup and treatment for the syncopal event. Since being admitted to the hospital, the patient reports that her symptoms have slowly improved. She currently denies an y headache, chest pain, palpitation, numbness, tingling, weakness, vision changes, dysarthria, or dys phagia. PAST MEDICAL HISTORY: Significant for hypertension, peripheral vascular disease, coronary artery dis ease, chronic anemia, history of cellulitis in right lower extremity, dyslipidemia. PAST SURGICAL HISTORY: Significant for bilateral carotid endarterectomy, stent placement in left leg , CABG, lumbar spine surgery. SOCIAL HISTORY: She does not smoke or drink alcohol. She denies illicit drug use. She is currently living independently and able to take care of ADLs. FAMILY HISTORY: None significant. CURRENT MEDICATIONS: Please review MAR. ALLERGIES: Include CODEINE, PENICILLIN, SULFONAMIDE. REVIEW OF SYSTEMS: As mentioned in HPI, otherwise negative. PHYSICAL EXAMINATION: VITAL SIGNS: Blood pressure of 121/47, pulse of 60, temperature of 98.4, respirations of 18, O2 sats of 92% on room air. GENERAL: Well-developed, well-nourished female in no apparent distress. RESPIRATORY: Clear to auscultation bilaterally. CARDIOVASCULAR: Regular rate and rhythm. NEUROLOGIC: The patient is awake, alert, oriented x3. Speech and language: Fluent speech. Cranial nerves: Pupils are 3 mm and reactive. Visual bowles are intact. Extraocular muscles are intact. No nystagmus noted. Face is symmetric. Tongue and uvula are midline. Motor exam showed normal tone and bulk with 5/5 strength in both upper and lower extremities. Sensory: Sensation is intact and s ymmetric. Coordination intact to [id number] and finger tapping bilaterally. LABORATORY DATA: Labs are reviewed, which included CBC, coag panel, BMP, troponin, CK-MB, CPK, and u rinalysis which is significant for white cell count of 14.7, BUN of 54, creatinine of 1.88. Troponin of 0.685. Urinalysis showed 4+ bacteria, 21-50 wbc's, trace leukocyte esterase, negative nitrites, otherwise unremarkable. IMAGING STUDIES: MRI brain without contrast was reviewed, which showed acute small right centrum vee iovale and left pre and postcentral gyrus ischemic infarct. Carotid Doppler results were reviewed, w hich showed moderate echogenic plaque bilaterally. No evidence of hemodynamically significant stenos is. Echocardiogram results were reviewed, which showed EF of 60%-65%, small-size pericardial effusio n without tamponade, otherwise unremarkable. IMPRESSION: 1. Bilateral cerebral hemisphere ischemic infarct. 2. Hypertension. 3. Paroxysmal atrial fibrillation. ASSESSMENT AND PLAN: Ms. Mireles is a pleasant 87-year-old female who presented with an epi sode of syncope. She had MRI brain done, which showed bilateral hemisphere ischemic infarct. Based on the findings of the MRI, this stroke is likely secondary to cardioembolic in origin. After review ing the records with Dr. Escalona, it was noted that the patient had paroxysmal atrial fibrillation carmela t was diagnosed in 2002; however, has not been started on any medication. At this time, I would rock mmend starting her on anticoagulation therapy with Eliquis. I will recommend to follow up with Dr. Teresa chang's dictated note for recommendations of anticoagulation therapy. Continue supportive care. David jacobs PT, OT, speech therapy. Thank you for consultation.
[2017-09-11] MEDS: HumaLOG 300 UNITS/3 ML VIAL SC PRN (05:54)
[2017-09-11] MEDS: Amlodipine 10 MG TAB PO SCH (08:52)
[2017-09-11] MEDS: Cyanocobalamin (Vitamin B-12) 1,000 MCG TAB PO SCH (08:53)
[2017-09-11] MEDS: hydrALAZINE 25 MG TAB PO SCH ×4 (08:54→20:14)
[2017-09-11] MEDS: Ferrous Sulfate 325 MG TAB PO SCH (08:56)
[2017-09-11] MEDS: Clopidogrel Bisulfate 75 MG TAB PO SCH (08:56)
[2017-09-11] MEDS: Famotidine 20 MG TAB PO SCH (08:57)
[2017-09-11] MEDS ORDERED: Non-Formulary Item 1 EACH (Cyanocobalamin (Vitamin B-12) [Vitamin B12] 1,000 MCG) PO SCH (09:00)
[2017-09-11] MEDS ORDERED: Non-Formulary Item 1 EACH (Isosorbide Mononitrate [Imdur Er] 120 MG) PO SCH (09:00)
[2017-09-11] MEDS ORDERED: FERROUS SULFATE DRIED 65 MG PO SCH (09:00)
[2017-09-11 09:56] LABS: Anion Gap 12 mmol/L (10-20); BUN (Urea Nitrogen) 40 mg/dL (9.8-20.1); Calc. Creatinine Clearance 24 mL/min (70-130); Carbon Dioxide 26 mmol/L (23-31); Chloride 104 mmol/L (98-107); Estimated GFR-MDRD 32; Glucose 236 mg/dL (83-110); Potassium 3.5 mmol/L (3.5-5.1); Sodium 138 mmol/L (136-145)
[2017-09-11] MEDS ORDERED: Acetaminophen 325 MG TAB PO PRN (11:33)
--- NOTE | 2017-09-11 12:15 | PDOC.PN ---
- Subjective Encounter Start Date: 09/11/17 Encounter Start Time: 12:13 Subjective: feels well. eating good,no weakness,speech problems per son -: walked w PT without difficulty -: doing better per son.pt herself has no complaints - Objective Resuscitation Status: Resuscitation Status FULL:Full Resuscitation MAR Reviewed: Yes Vital Signs & Weight: Vital Signs (12 hours) Temp Pulse Pulse Pulse Resp BP BP 09/11/17 11:38 97.1 F L 64 16 09/11/17 08:57 61 66 197/73 H 176/61 H 09/11/17 08:54 56 L 09/11/17 08:52 56 L 09/11/17 07:56 09/11/17 07:38 98.1 F 56 L 14 09/11/17 04:00 97.6 F 52 L 20 BP Pulse Ox 09/11/17 11:38 176/64 H 98 09/11/17 08:57 09/11/17 08:54 09/11/17 08:52 09/11/17 07:56 160/72 H 09/11/17 07:38 207/64 H 95 09/11/17 04:00 151/56 H 96 Weight Weight 125 lb 6.4 oz I&O: 09/10/17 09/11/17 09/12/17 06:59 06:59 06:59 Intake Total 240 449 Balance 240 449 Result Diagrams: 09/10/17 05:29 09/11/17 09:01 Additional Labs: Accuchecks 09/11/17 09/11/17 09/11/17 11:14 05:07 00:13 POC Glucose 204 H 172 H 167 H 09/10/17 16:43 POC Glucose 130 H Microbiology 09/09/17 14:43 Venous blood - Right Arm Blood Culture - Preliminary Specimen has been received and culture in progress. No Growth to date. 09/09/17 14:38 Venous blood - Left Arm Blood Culture - Preliminary Specimen has been received and culture in progress. No Growth to date. 09/09/17 13:28 Urine Straight Catheter Urine Culture - Preliminary Escherichia coli Laboratory Tests 09/09/17 09/10/17 09/11/17 13:05 05:29 09:01 Creatinine 3.47 H 1.88 H 1.53 H LABS REVIEWED Phys Exam - Physical Examination Constitutional: NAD HEENT: PERRLA, moist MMs, sclera anicteric, oral pharynx no lesions Neck: no nodes, no JVD, supple, full ROM Respiratory: no wheezing, no rales, no rhonchi, clear to auscultation bilateral Cardiovascular: RRR, no significant murmur Gastrointestinal: soft, non-tender, no distention, positive bowel sounds Musculoskeletal: no edema, pulses present Neurological: non-focal, normal sensation, moves all 4 limbs Psychiatric: normal affect, A&O x 3 Skin: no rash Dx/Plan (1) Acute CVA (cerebrovascular accident) Code(s): I63.9 - CEREBRAL INFARCTION, UNSPECIFIED Status: Acute Comment: sanam embolic (2) Sepsis Code(s): A41.9 - SEPSIS, UNSPECIFIED ORGANISM Status: Acute (3) UTI (urinary tract infection) Status: Acute (4) MEGAN (acute kidney injury) Code(s): N17.9 - ACUTE KIDNEY FAILURE, UNSPECIFIED Status: Acute (5) Dehydration Code(s): E86.0 - DEHYDRATION Status: Acute (6) NSTEMI (non-ST elevated myocardial infarction) Code(s): I21.4 - NON-ST ELEVATION (NSTEMI) MYOCARDIAL INFARCTION Status: Acute Comment: demand ischemia from sepsis (7) DM2 (diabetes mellitus, type 2) Status: Acute (8) Altered mental status Code(s): R41.82 - ALTERED MENTAL STATUS, UNSPECIFIED Status: Resolved (9) Rhabdomyolysis Code(s): M62.82 - RHABDOMYOLYSIS Status: Acute (10) CAD (coronary artery disease) Code(s): I25.10 - ATHSCL HEART DISEASE OF [place] CORONARY ARTERY W/O ANG PCTRS Status: Chronic Comment: on ASA,plavix,statin .CHELSIE-I on hold due to MEGAN (11) HTN (hypertension) Code(s): I10 - ESSENTIAL (PRIMARY) HYPERTENSION Status: Chronic (12) PAD (peripheral artery disease) Code(s): I73.9 - PERIPHERAL VASCULAR DISEASE, UNSPECIFIED Status: Chronic - Plan continue antibiotics, PT/OT, social sciences chair, out of bed/ambulate, DVT proph w/ SCDs discussed anticoagulation w family.started on eliquis for suspeceted emboli -: stroke.cont Plavix but stop ASA.monitor H/H -: cont OT,PT.family declines rehab offer.arrange HH -: cont ABx.change to PO on DC-sanam tomorrow -: renal Fx improving.stop IVF.adequate PO intake * .am labs * BP high-home meds started.cont prn meds * likley dc tomorrow am Review of Systems - Review of Systems Constitutional: negative: fever, chills, sweats, weakness, malaise, other ENT: negative: Ear Pain, Ear Discharge, Nose Pain, Nose Discharge, Nose Congestion, Mouth Pain, Mouth Swelling, Throat Pain, Throat Swelling, Other Respiratory: negative: Cough, Dry, Shortness of Breath, Hemoptysis, SOB with Excertion, Pleuritic Pain, Sputum, Wheezing Cardiovascular: negative: chest pain, palpitations, orthopnea, paroxysmal nocturnal dyspnea, edema, light headedness, other Gastrointestinal: negative: Nausea, Vomiting, Abdominal Pain, Diarrhea, Constipation, Melena, Hematochezia, Other Genitourinary: negative: Dysuria, Frequency, Incontinence, Hematuria, Retention , Other Musculoskeletal: negative: Neck Pain, Shoulder Pain, Arm Pain, Back Pain, Hand Pain, Leg Pain, Foot Pain, Other Skin: negative: Rash, Lesions, Armando, Bruising, Other Neurological: negative: Weakness, Numbness, Incoordination, Change in Speech, Confusion, Seizures, Other - Medications/Allergies Allergies/Adverse Reactions: Allergies Allergy/AdvReac Type Severity Reaction Status Date / Time codeine Allergy Verified 02/27/17 09:15 Penicillins Allergy Verified 02/27/17 09:15 Sulfa (Sulfonamide Allergy Verified 02/27/17 09:15 Antibiotics) Medications: Current Medications Acetaminophen (Tylenol) 650 mg PO Q6H PRN PRN Reason: Headache/Fever or Pain Al Hydroxide/Mg Hydroxide (Maalox) 30 ml PO Q6H PRN PRN Reason: Heartburn or Indigestion Amlodipine Besylate (Norvasc) 10 mg PO DAILY [facility] Last Admin: 09/11/17 08:52 Dose: 10 mg Apixaban (Eliquis) 2.5 mg PO BID [facility] Last Admin: 09/10/17 22:10 Dose: 2.5 mg Atorvastatin Calcium (Lipitor) 40 mg PO HS [facility] Last Admin: 09/10/17 22:10 Dose: 40 mg Benzonatate (Tessalon) 100 mg PO Q4H PRN PRN Reason: Cough Bisacodyl (Dulcolax) 10 mg PO DAILYPRN PRN PRN Reason: Constipation Calcium Carbonate (Tums) 1,000 mg PO Q4H PRN PRN Reason: Heartburn or Indigestion Clonidine (Catapres) 0.1 mg PO Q4H PRN PRN Reason: Systolic BP > 160 Last Admin: 09/10/17 16:29 Dose: 0.1 mg Clopidogrel Bisulfate (Plavix) 75 mg PO DAILY [facility] Last Admin: 09/11/17 08:56 Dose: 75 mg Cyanocobalamin (Vitamin B-12) 1,000 mcg PO DAILY [facility] Last Admin: 09/11/17 08:53 Dose: 1,000 mcg Dextrose/Water (Dextrose 50%) 25 gm SLOW IVP PRN PRN PRN Reason: Hypoglycemia Famotidine (Pepcid) 20 mg PO DAILY [facility] Last Admin: 09/11/17 08:57 Dose: 20 mg Ferrous Sulfate (Feosol) 325 mg PO DAILY [facility] Last Admin: 09/11/17 08:56 Dose: 325 mg Glipizide (Glucotrol Xl) 2.5 mg PO DAILY [facility] Last Admin: 09/11/17 08:57 Dose: 2.5 mg Glucagon (Glucagon) 1 mg IM PRN PRN PRN Reason: Hypoglycemia Guaifenesin (Robitussin Sf) 200 mg PO Q4H PRN PRN Reason: Cough Hydralazine HCl (Apresoline) 10 mg SLOW IVP Q4H PRN PRN Reason: Systolic BP > 170 Hydralazine HCl (Apresoline) 50 mg PO QID [facility] Last Admin: 09/11/17 08:54 Dose: 50 mg Dextrose/Water (D5w) 1,000 mls @ 0 mls/hr IV .Q0M PRN; As Directed PRN Reason: Hypoglycemia Levofloxacin 250 mg/ Device 50 mls @ 100 mls/hr IVPB Q2D@0800 [facility] Sodium Chloride (Normal Saline 0.9%) 1,000 mls @ 50 mls/hr IV .Q20H [facility] Last Admin: 09/10/17 16:27 Dose: 1,000 mls Insulin Human Lispro (Humalog) 0 units SC .MODERATE SLIDING SC PRN PRN Reason: Moderate Correctional Scale Last Admin: 09/11/17 05:54 Dose: 2 unit Insulin Human Lispro (Humalog) 0 units SC .BEDTIME SLIDING SC PRN PRN Reason: Bedtime Correctional Scale Isosorbide Mononitrate (Imdur) 120 mg PO DAILY [facility] Last Admin: 09/11/17 08:55 Dose: 120 mg Lactulose (Lactulose) 20 gm PO DAILYPRN PRN PRN Reason: Constipation Loratadine (Claritin) 10 mg PO DAILYPRN PRN PRN Reason: Sinus Symptoms Ondansetron HCl (Zofran) 4 mg IVP Q6H PRN PRN Reason: Nausea/Vomiting Senna (Senokot) 2 tab PO HSPRN PRN PRN Reason: Constipation Sodium Chloride (Flush - Normal Saline) 10 ml IVF Q12HR [facility] Last Admin: 09/11/17 09:01 Dose: Not Given Sodium Chloride (Flush - Normal Saline) 10 ml IVF PRN PRN PRN Reason: Saline Flush
[2017-09-11] MEDS: Apixaban 2.5 MG TAB PO SCH ×2 (12:47→20:13)
--- NOTE | 2017-09-11 14:12 | PDOC.CTH ---
Cardiology Progress Note - Subjective Doing better. Much more awake today and mentation back to normal. - Objective Vital Signs Temp Pulse Pulse Pulse Resp BP BP 09/11/17 12:47 64 09/11/17 11:38 97.1 F L 64 16 09/11/17 11:06 61 62 149/57 H 176/64 H 09/11/17 08:57 61 66 197/73 H 176/61 H 09/11/17 08:54 56 L 09/11/17 08:52 56 L 09/11/17 07:56 09/11/17 07:38 98.1 F 56 L 14 09/11/17 04:00 97.6 F 52 L 20 BP Pulse Ox 09/11/17 12:47 09/11/17 11:38 176/64 H 98 09/11/17 11:06 09/11/17 08:57 09/11/17 08:54 09/11/17 08:52 09/11/17 07:56 160/72 H 09/11/17 07:38 207/64 H 95 09/11/17 04:00 151/56 H 96 Weight 125 lb 6.4 oz 09/10/17 09/11/17 09/12/17 06:59 06:59 06:59 Intake Total 240 449 Balance 240 449 - Physical Examination General/Neuro: alert & oriented x3, NAD Neck: no JVD present Lungs: CTA, unlabored respirations Heart: RRR Abdomen: NT/ND Extremities: other: (no edema.) - Telemetry Telemetry Rhythm: NSR - Labs Result Diagrams: 09/10/17 05:29 09/11/17 09:01 Troponin/CKMB CK-MB (CK-2) 11.4 ng/mL (0-6.6) H* 09/09/17 13:05 Troponin I 0.685 ng/mL (< 0.028) H* 09/09/17 22:54 - Assessment/Plan 1. Acute CVA 2. Severe carotid stenosis s/p CEA in Feb 2017 3. PVD 4. NSTEMI, demand ischemia 5. Paroxysmal afib. 6. ARF on CKD. Improving. 7. UTI PLAN: - She has tolerated Eliquis well. Continue for now with plavix, NO aspirin. - Increase PT as tolerated.
[2017-09-11] MEDS: Sodium Chloride 0.9% 1,000 ML IV SCH (16:55)
--- NOTE | 2017-09-11 16:56 | PRG ---
DATE OF SERVICE: 09/11/2017 SUBJECTIVE: Patient was seen and examined at bedside and overnight events noted. Patient denies any shortness of breath or chest pain or palpitation. No history of nausea or vomiting or diarrhea or f ever or chills or cramps. OBJECTIVE: GENERAL: This is a well-developed female in no apparent distress. VITAL SIGNS: Temperature 97.1, pulse 60, respirations 18, blood pressure 176/64. HEENT: Atraumatic, normocephalic. Oral mucosa is moist. NECK: Supple. CARDIOVASCULAR: S1, S2 heard. Rate and rhythm regular. RESPIRATORY: Clear to auscultation. GASTROINTESTINAL: Abdomen is soft. MUSCULOSKELETAL: No tenderness. No edema. DERMATOLOGIC: No skin rash. NEUROLOGIC: Alert and awake and oriented x3. No focal neurologic deficits. Moving all the extremit ies. PSYCHIATRIC: Mood and affect normal. LABORATORY DATA: Potassium 3.5, BUN is 40, creatinine is 1.5. ASSESSMENT AND PLAN: 1. Acute kidney injury, currently volume depletion, better with IV fluids. 2. . 3. . Continue IV fluids at 50 mL an hour for 1 more day. We will follow. Avoid nephrotoxins.
[2017-09-11] MEDS: Atorvastatin Calcium 40 MG TAB PO SCH (20:14)
[2017-09-12 04:56] LABS: #Basophils 0.1 thou/uL (0.0-0.2); #Eosinphils 0.1 thou/uL (0.0-0.7); #Lymphocytes 1.3 thou/uL (1.20-3.40); #Monocytes 0.5 thou/uL (0.11-0.59); #Neutrophils 2.7 thou/uL (1.40-6.50); %Basophils 1.3 % (0.0-1.0); %Eosinophils 1.2 % (0.0-10.0); %Lymphocytes 28.8 % (21.0-51.0); %Monocytes 9.8 % (0.0-10.0); %Neutrophils 58.9 % (42.0-75.0); Hemoglobin 10.2 g/dL (12.0-16.0); Mean Corpuscular HGB CONC 33.4 g/dL (32.0-36.0); Mean Corpuscular Hemoglobin 30.6 pg (27.0-31.0); Mean Corpuscular Volume 91.8 fl (81.0-99.0); Mean Platelet Volume 7.2 fL (7.4-10.4); Platelet Count 164 thou/uL (130-400); RBC Distribution Width 12.7 % (11.5-14.5); Red Blood Cell (RBC) Count 3.35 mill/uL (4.20-5.40); White Blood Cell (WBC) Count 4.6 thou/uL (4.8-10.8)
[2017-09-12 05:08] LABS: Anion Gap 7 mmol/L (10-20); BUN (Urea Nitrogen) 33 mg/dL (9.8-20.1); Calc. Creatinine Clearance 28 mL/min (70-130); Calcium 7.7 mg/dL (7.8-10.44); Carbon Dioxide 25 mmol/L (23-31); Chloride 110 mmol/L (98-107); Estimated GFR-MDRD 38; Glucose 156 mg/dL (83-110); Potassium 3.4 mmol/L (3.5-5.1); Sodium 139 mmol/L (136-145)
[2017-09-12] MEDS: HumaLOG 300 UNITS/3 ML VIAL SC PRN ×2 (06:13→11:22)
[2017-09-12] MEDS: hydrALAZINE 25 MG TAB PO SCH (08:46)
[2017-09-12] MEDS: Cyanocobalamin (Vitamin B-12) 1,000 MCG TAB PO SCH (08:46)
[2017-09-12] MEDS: Apixaban 2.5 MG TAB PO SCH (08:46)
[2017-09-12] MEDS: Clopidogrel Bisulfate 75 MG TAB PO SCH (08:47)
[2017-09-12] MEDS: Amlodipine 10 MG TAB PO SCH (08:48)
[2017-09-12] MEDS: Famotidine 20 MG TAB PO SCH (08:48)
[2017-09-12] MEDS: Ferrous Sulfate 325 MG TAB PO SCH (08:49)
[2017-09-12] MEDS: Sodium Chloride 0.9% 1,000 ML IV SCH (08:53)
[2017-09-12] MEDS ORDERED: cloNIDine 0.1 MG TAB PO SCH (09:00)
[2017-09-12] MEDS ORDERED: hydrALAZINE 25 MG TAB PO SCH (12:25)
--- NOTE | 2017-09-12 12:25 | PDOC.PN ---
- Subjective Encounter Start Date: 09/12/17 Encounter Start Time: 12:23 Subjective: feels well. walkinh in hallways w PT w/o difficulty -: son reports that her memory is returning -: no overnight events - Objective Resuscitation Status: Resuscitation Status FULL:Full Resuscitation MAR Reviewed: Yes Vital Signs & Weight: Vital Signs (12 hours) Temp Pulse Pulse Resp BP BP BP 09/12/17 12:00 97.3 F L 61 16 09/12/17 11:24 50 L 09/12/17 09:28 09/12/17 09:13 63 190/64 H 172/50 H 09/12/17 08:48 50 L 09/12/17 08:46 50 L 09/12/17 08:45 138/56 L 09/12/17 08:00 98.3 F 50 L 16 09/12/17 07:58 98.3 F 50 L 16 09/12/17 03:08 98.3 F 50 L 16 BP Pulse Ox 09/12/17 12:00 204/69 H 97 09/12/17 11:24 09/12/17 09:28 172/50 H 09/12/17 09:13 09/12/17 08:48 09/12/17 08:46 09/12/17 08:45 09/12/17 08:00 09/12/17 07:58 97 09/12/17 03:08 154/56 H 95 Weight Weight 125 lb 6.4 oz I&O: 09/11/17 09/12/17 09/13/17 06:59 06:59 06:59 Intake Total 449 720 Balance 449 720 Result Diagrams: 09/12/17 04:49 09/12/17 04:49 Additional Labs: Accuchecks 09/12/17 09/12/17 09/11/17 10:35 05:32 20:42 POC Glucose 212 H 150 H 153 H 09/11/17 16:31 POC Glucose 134 H Microbiology 09/09/17 13:28 Urine Straight Catheter Urine Culture - Final Escherichia coli 09/09/17 14:43 Venous blood - Right Arm Blood Culture - Preliminary NO GROWTH AT 48 HOURS 09/09/17 14:38 Venous blood - Left Arm Blood Culture - Preliminary NO GROWTH AT 48 HOURS Laboratory Tests 06/12/18 06/13/18 06/14/18 13:05 05:29 09:01 Creatinine 3.47 H 1.88 H 1.53 H 09/12/17 04:49 Creatinine 1.34 H labs reviewed Phys Exam - Physical Examination Constitutional: NAD HEENT: PERRLA, moist MMs, sclera anicteric, oral pharynx no lesions Neck: no nodes, no JVD, supple, full ROM Respiratory: no wheezing, no rales, no rhonchi, clear to auscultation bilateral Cardiovascular: RRR, no significant murmur, no rub Gastrointestinal: soft, non-tender, no distention, positive bowel sounds Musculoskeletal: no edema, pulses present Neurological: non-focal, normal sensation, moves all 4 limbs Psychiatric: normal affect, A&O x 3 Skin: no rash Dx/Plan (1) Acute CVA (cerebrovascular accident) Code(s): I63.9 - CEREBRAL INFARCTION, UNSPECIFIED Status: Acute Comment: sanam embolic.started on anticoagulation (2) Uncontrolled hypertension Code(s): I10 - ESSENTIAL (PRIMARY) HYPERTENSION Status: Acute (3) Sepsis Code(s): A41.9 - SEPSIS, UNSPECIFIED ORGANISM Status: Acute (4) UTI (urinary tract infection) Status: Acute (5) MEGAN (acute kidney injury) Code(s): N17.9 - ACUTE KIDNEY FAILURE, UNSPECIFIED Status: Acute Comment: imrpoving (6) Dehydration Code(s): E86.0 - DEHYDRATION Status: Acute (7) NSTEMI (non-ST elevated myocardial infarction) Code(s): I21.4 - NON-ST ELEVATION (NSTEMI) MYOCARDIAL INFARCTION Status: Acute Comment: demand ischemia from sepsis (8) DM2 (diabetes mellitus, type 2) Status: Acute (9) Altered mental status Code(s): R41.82 - ALTERED MENTAL STATUS, UNSPECIFIED Status: Resolved (10) Rhabdomyolysis Code(s): M62.82 - RHABDOMYOLYSIS Status: Acute (11) CAD (coronary artery disease) Code(s): I25.10 - ATHSCL HEART DISEASE OF [place] CORONARY ARTERY W/O ANG PCTRS Status: Chronic Comment: on ASA,plavix,statin .CHELSIE-I on hold due to MEGAN (12) HTN (hypertension) Code(s): I10 - ESSENTIAL (PRIMARY) HYPERTENSION Status: Chronic (13) PAD (peripheral artery disease) Code(s): I73.9 - PERIPHERAL VASCULAR DISEASE, UNSPECIFIED Status: Chronic - Plan continue antibiotics, PT/OT, social research assistant, out of bed/ambulate, DVT proph w/ SCDs BP very high. increase hydralazine.avoid Bb/clonidine d/t slow HR -: avoid CHELSIE-I d/t MEGAN. -: renal Fx improving.monitor -: cont plavix.on Eliquis for embolic stroke.H/h stable.monitor -: family requesting rehab.will send referral thru [facility] * .home meds as below. Review of Systems - Review of Systems Constitutional: negative: fever, chills, sweats, weakness, malaise, other ENT: negative: Ear Pain, Ear Discharge, Nose Pain, Nose Discharge, Nose Congestion, Mouth Pain, Mouth Swelling, Throat Pain, Throat Swelling, Other Respiratory: negative: Cough, Dry, Shortness of Breath, Hemoptysis, SOB with Excertion, Pleuritic Pain, Sputum, Wheezing Cardiovascular: negative: chest pain, palpitations, orthopnea, paroxysmal nocturnal dyspnea, edema, light headedness, other Gastrointestinal: negative: Nausea, Vomiting, Abdominal Pain, Diarrhea, Constipation, Melena, Hematochezia, Other Genitourinary: negative: Dysuria, Frequency, Incontinence, Hematuria, Retention , Other Musculoskeletal: negative: Neck Pain, Shoulder Pain, Arm Pain, Back Pain, Hand Pain, Leg Pain, Foot Pain, Other Skin: negative: Rash, Lesions, Armando, Bruising, Other Neurological: negative: Weakness, Numbness, Incoordination, Change in Speech, Confusion, Seizures, Other - Medications/Allergies Allergies/Adverse Reactions: Allergies Allergy/AdvReac Type Severity Reaction Status Date / Time codeine Allergy Verified 02/27/17 09:15 Penicillins Allergy Verified 02/27/17 09:15 Sulfa (Sulfonamide Allergy Verified 02/27/17 09:15 Antibiotics) Medications: Current Medications Acetaminophen (Tylenol) 650 mg PO Q6H PRN PRN Reason: Headache/Fever or Pain Al Hydroxide/Mg Hydroxide (Maalox) 30 ml PO Q6H PRN PRN Reason: Heartburn or Indigestion Amlodipine Besylate (Norvasc) 10 mg PO DAILY [facility] Last Admin: 09/12/17 08:48 Dose: 10 mg Apixaban (Eliquis) 2.5 mg PO BID [facility] Last Admin: 09/12/17 08:46 Dose: 2.5 mg Atorvastatin Calcium (Lipitor) 40 mg PO HS [facility] Last Admin: 09/11/17 20:14 Dose: 40 mg Benzonatate (Tessalon) 100 mg PO Q4H PRN PRN Reason: Cough Bisacodyl (Dulcolax) 10 mg PO DAILYPRN PRN PRN Reason: Constipation Calcium Carbonate (Tums) 1,000 mg PO Q4H PRN PRN Reason: Heartburn or Indigestion Clonidine (Catapres) 0.1 mg PO Q4H PRN PRN Reason: Systolic BP > 160 Last Admin: 09/10/17 16:29 Dose: 0.1 mg Clopidogrel Bisulfate (Plavix) 75 mg PO DAILY [facility] Last Admin: 09/12/17 08:47 Dose: 75 mg Cyanocobalamin (Vitamin B-12) 1,000 mcg PO DAILY [facility] Last Admin: 09/12/17 08:46 Dose: 1,000 mcg Dextrose/Water (Dextrose 50%) 25 gm SLOW IVP PRN PRN PRN Reason: Hypoglycemia Famotidine (Pepcid) 20 mg PO DAILY [facility] Last Admin: 09/12/17 08:48 Dose: 20 mg Ferrous Sulfate (Feosol) 325 mg PO DAILY [facility] Last Admin: 09/12/17 08:49 Dose: 325 mg Glipizide (Glucotrol Xl) 2.5 mg PO DAILY [facility] Last Admin: 09/12/17 08:46 Dose: 2.5 mg Glucagon (Glucagon) 1 mg IM PRN PRN PRN Reason: Hypoglycemia Guaifenesin (Robitussin Sf) 200 mg PO Q4H PRN PRN Reason: Cough Hydralazine HCl (Apresoline) 10 mg SLOW IVP Q4H PRN PRN Reason: Systolic BP > 170 Last Admin: 09/12/17 11:24 Dose: 10 mg Hydralazine HCl (Apresoline) 50 mg PO QID [facility] Last Admin: 09/12/17 08:46 Dose: 50 mg Dextrose/Water (D5w) 1,000 mls @ 0 mls/hr IV .Q0M PRN; As Directed PRN Reason: Hypoglycemia Levofloxacin 250 mg/ Device 50 mls @ 100 mls/hr IVPB Q2D@0800 [facility] Last Admin: 09/12/17 08:52 Dose: 50 mls Sodium Chloride (Normal Saline 0.9%) 1,000 mls @ 50 mls/hr IV .Q20H [facility] Last Admin: 09/12/17 08:53 Dose: Not Given Insulin Human Lispro (Humalog) 0 units SC .MODERATE SLIDING SC PRN PRN Reason: Moderate Correctional Scale Last Admin: 09/12/17 11:22 Dose: 4 unit Insulin Human Lispro (Humalog) 0 units SC .BEDTIME SLIDING SC PRN PRN Reason: Bedtime Correctional Scale Isosorbide Mononitrate (Imdur) 120 mg PO DAILY [facility] Last Admin: 09/12/17 08:48 Dose: 120 mg Lactulose (Lactulose) 20 gm PO DAILYPRN PRN PRN Reason: Constipation Loratadine (Claritin) 10 mg PO DAILYPRN PRN PRN Reason: Sinus Symptoms Ondansetron HCl (Zofran) 4 mg IVP Q6H PRN PRN Reason: Nausea/Vomiting Senna (Senokot) 2 tab PO HSPRN PRN PRN Reason: Constipation Sodium Chloride (Flush - Normal Saline) 10 ml IVF Q12HR [facility] Last Admin: 09/12/17 08:51 Dose: 10 ml Sodium Chloride (Flush - Normal Saline) 10 ml IVF PRN PRN PRN Reason: Saline Flush
--- NOTE | 2017-09-12 13:27 | PDOC.CTH ---
Cardiology Progress Note - Subjective She is doing much better. Working with PT. - Objective Vital Signs Temp Pulse Pulse Resp BP BP BP 09/12/17 12:55 65 09/12/17 12:51 61 09/12/17 12:00 97.3 F L 61 16 09/12/17 11:24 50 L 09/12/17 09:28 09/12/17 09:13 63 190/64 H 172/50 H 09/12/17 08:48 50 L 09/12/17 08:46 50 L 09/12/17 08:45 138/56 L 09/12/17 08:00 98.3 F 50 L 16 09/12/17 07:58 98.3 F 50 L 16 09/12/17 03:08 98.3 F 50 L 16 BP Pulse Ox 09/12/17 12:55 154/57 H 09/12/17 12:51 09/12/17 12:00 204/69 H 97 09/12/17 11:24 09/12/17 09:28 172/50 H 09/12/17 09:13 09/12/17 08:48 09/12/17 08:46 09/12/17 08:45 09/12/17 08:00 09/12/17 07:58 97 09/12/17 03:08 154/56 H 95 Weight 125 lb 6.4 oz 09/11/17 09/12/17 09/13/17 06:59 06:59 06:59 Intake Total 449 720 Balance 449 720 - Physical Examination General/Neuro: alert & oriented x3, NAD Neck: no JVD present Lungs: CTA, unlabored respirations Heart: RRR Abdomen: NT/ND Extremities: other: (no edema) - Telemetry Telemetry Rhythm: NSR - Labs Result Diagrams: 09/12/17 04:49 09/12/17 04:49 Troponin/CKMB CK-MB (CK-2) 11.4 ng/mL (0-6.6) H* 09/09/17 13:05 Troponin I 0.685 ng/mL (< 0.028) H* 09/09/17 22:54 - Assessment/Plan 1. Acute CVA 2. Severe carotid stenosis s/p CEA in Feb 2017 3. PVD 4. NSTEMI, demand ischemia 5. Paroxysmal afib. 6. ARF on CKD. Improving. 7. UTI PLAN: - Continue Eliquis with plavix, NO aspirin. - Increase PT as tolerated. - Replace K - Will likely benefit from inpatient PT. - Will sign off. Please call with any questions. - Follow in the office in 1 month.
[2017-09-12 15:44] VITALS: BP 151/61; TEMP 99.2
--- NOTE | 2017-09-12 19:40 | PRG ---
DATE OF SERVICE: 09/12/2017 SUBJECTIVE: Patient was seen and examined at bedside and overnight events noted. Patient denies any shortness of breath or chest pain or palpitation. No history of nausea or vomiting or diarrhea or fever or chills or cramps. OBJECTIVE: GENERAL: This is an elderly female, in no apparent distress. VITAL SIGNS: Temperature 99.2, pulse 64, respiratory rate 18, blood pressure 154/57. HEENT: Atraumatic, normocephalic. Oral mucosa is moist NECK: Supple CARDIOVASCULAR: S1S2 heard, Rate and rhythm regular. RESPIRATORY: Clear to auscultation. GASTROINTESTINAL: Abdomen is soft. MUSCULOSKELETAL: No tenderness. No edema. DERMATOLOGIC: No skin rash. NEUROLOGIC: Alert and awake and oriented x3. No focal neurologic deficits. Moving all the extremit ies. PSYCHIATRIC: Mood and affect normal. LABORATORY DATA: Potassium 3.4, BUN 33, creatinine is 1.6. ASSESSMENT AND PLAN: 1. Acute kidney injury, much better. 2. Edema, controlled. 3. Hypokalemia, replace. 4. Hypocalcemia. 5. Edema, controlled. 6. Hypertension, stable. Overall, renal function is stable. We will follow.
--- NOTE | 2017-09-13 09:27 | DIS ---
DATE OF ADMISSION: 09/09/2017 DATE OF DISCHARGE: 09/12/2017 CONDITION AT THE TIME OF DISCHARGE: Stable and improved. PRIMARY CARE PHYSICIAN: Dr. Nessa Bo. DISCHARGE DISPOSITION: [facility]. DISCHARGE FOLLOWUP: 1. Primary care physician. 2. Cardiology, Dr. Escalona. 3. Neurology, Dr. Yamel Dunn. DISCHARGE DIAGNOSES: 1. 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 2. Uncontrolled hypertension. 3. Sepsis. 4. Dehydration. 5. Altered mental status. 6. History of paroxysmal atrial fibrillation. 7. Peripheral vascular disease with history of severe carotid stenosis, status post CEA in 02/2017. 8. Non-ST elevation myocardial infarction demand ischemia. 9. Acute on chronic kidney disease, improved. 10. Urinary tract infection. 11. Rhabdomyolysis. 12. History of coronary artery disease. DISCHARGE MEDICATIONS: As follows, Plavix 75 mg daily, glipizide 1 tablet daily, ferrous sulfate 65 mg daily, vitamin B12 1000 mcg daily, isosorbide mononitrate 120 mg daily, Lipitor 1 tablet daily, hy dralazine increased to 75 mg q.i.d., clonidine 0.1 mg every 4 hours as needed for systolic blood pres sure more than 160, Pepcid 20 mg daily, Tums as needed, Dulcolax as needed, Tessalon as needed, Norva sc. NEW MEDICATIONS: Eliquis 2.5 mg p.o. b.i.d., amlodipine 10 mg daily. DISCONTINUED MEDICATIONS: Aspirin daily. CONSULTATIONS IN-HOUSE: 1. Cardiology, Dr. Escalona. 2. Nephrology, Dr. Collins. 3. Neurology, Dr. Yamel Dunn. PROCEDURES DONE IN THE HOSPITAL: Includes, 1. CT scan of the brain and cervical spine upon presentation, which shows atrophy with chronic white matter changes in the brain and no acute process and no fractures or subluxation of cervical spine. 2. Carotid Doppler ultrasound, which shows plaque bilaterally without any significant stenosis. 3. MRI of the brain, which shows acute infarction in the left pre and post-central gyrus as well as right centrum semiovale. 4. Renal ultrasound, which shows increased echogenicity without evidence of obstruction, suggesting renal parenchymal disease. 5. Transthoracic echocardiogram, which shows EF of 60%-65%, grade I/III diastolic dysfunction withou t any significant valvular abnormalities. HISTORY OF PRESENT ILLNESS: Ms. Aline is a pleasant 87-year-old female. Ms. Mireles was brought in by her son after he found her lying on the floor in the bathroom. He is unsure how long she was down . When she was woken up, she had altered mental status and slurred speech. Upon presentation to the emergency room, she was hemodynamically stable. She underwent a chest x-ray and CT scan of brain an d cervical spine, which was unremarkable. She did have leukocytosis with WBCs of 18.1 and acute mirtha l insufficiency with a BUN of 58 and creatinine of 3.47. She also had hyperglycemia with blood sugar of 526 and elevated CK-MB and troponin as well. She was admitted with a presumptive diagnosis of ur inary tract infection as well as dehydration. She was also found to have elevated cardiac enzymes, p resumably non-ST elevation myocardial from dehydration. Her altered mental status needed to be worke d up as well. She was also admitted to rule out acute CVA. Please see admission history and sharlaa l for further details. HOSPITAL COURSE: Ms. Mireles was rehydrated with IV fluids and was started empirically on IV antibiot ics. Her urine culture came back positive for E. coli, which was pansensitive. She also underwent CVA workup, which was positive for acute CVA in both the right and left cerebral h emispheres. Neurology was consulted and their recommendation was that she should be anticoagulated a s this might represent an embolic stroke. Cardiology was also following the patient with regards to her elevated cardiac enzymes. Serial tropo nins were trended and she had highest troponin of 1.102 on presentation, which trended down to 0.685. Dr. Escalona agreed with the addition of anticoagulation with Eliquis as the patient has history of p aroxysmal atrial fibrillation multiple years ago. She was sinus rhythm as for now. Decision was mad e and she was taken off of her aspirin and was continued on Plavix. Eliquis was added for embolic st roke. The patient tolerated this very well. By the day of discharge, her renal function has significantly improved. She has good appetite. Her mentation is back to her baseline and she is walking in the hallways without much difficulty with the physical therapist. Initially, the patient wanted to take the patient home with home health, but later they wanted her to go to rehab, which was arranged for her. She was seen and examined prior to discharge and was hemodynamically stable. Please see Hospitalist progress note from the date of discharge for further details including [id number] interaction. Total time spent 33 minutes.
== END 2017-09-12 16:42 | DRG 871 ==
LOC: SCSER 12:49 → 2NO 16:07 → 2SE 09-10 17:53
PROVIDERS: ADMIT Internal Medicine; ATTEND Internal Medicine
DX: A41.9 Sepsis, unspecified organism (principal); I21.A1 Myocardial infarction type 2; I63.40 Cerebral infarction due to embolism of unspecified cerebral artery; N17.9 Acute kidney failure, unspecified; N39.0 Urinary tract infection, site not specified; M62.82 Rhabdomyolysis; E87.2 Acidosis; E11.65 Type 2 diabetes mellitus with hyperglycemia; E11.51 Type 2 diabetes mellitus with diabetic peripheral angiopathy without gangrene; E78.5 Hyperlipidemia, unspecified; E86.0 Dehydration; E87.6 Hypokalemia; E83.51 Hypocalcemia; I12.9 Hypertensive chronic kidney disease with stage 1 through stage 4 chronic kidney disease, or unspecified chronic kidney disease; E11.22 Type 2 diabetes mellitus with diabetic chronic kidney disease; N18.9 Chronic kidney disease, unspecified; R40.2132 Coma scale, eyes open, to sound, at arrival to emergency department; R40.2242 Coma scale, best verbal response, confused conversation, at arrival to emergency department; R40.2362 Coma scale, best motor response, obeys commands, at arrival to emergency department; R47.1 Dysarthria and anarthria; B96.20 Unspecified Escherichia coli [E. coli] as the cause of diseases classified elsewhere; I70.213 Atherosclerosis of native arteries of extremities with intermittent claudication, bilateral legs; D64.9 Anemia, unspecified; I25.10 Atherosclerotic heart disease of native coronary artery without angina pectoris; I48.0 Paroxysmal atrial fibrillation; S80.212A Abrasion, left knee, initial encounter; S80.211A Abrasion, right knee, initial encounter; W18.30XA Fall on same level, unspecified, initial encounter; Y92.002 Bathroom of unspecified non-institutional (private) residence as the place of occurrence of the external cause; S90.511A Abrasion, right ankle, initial encounter; Z95.1 Presence of aortocoronary bypass graft; Z98.61 Coronary angioplasty status; Z95.820 Peripheral vascular angioplasty status with implants and grafts; Z86.19 Personal history of other infectious and parasitic diseases; Z91.81 History of falling; Z87.828 Personal history of other (healed) physical injury and trauma; Z88.0 Allergy status to penicillin; Z88.2 Allergy status to sulfonamides; Z91.09 Other allergy status, other than to drugs and biological substances; Z79.02 Long term (current) use of antithrombotics/antiplatelets; Z79.82 Long term (current) use of aspirin; Z79.899 Other long term (current) drug therapy; Z86.79 Personal history of other diseases of the circulatory system
CPT/HCPCS: 36415; 36416; 51701; 70450; 70551; 71045; 72125; 76770; 80048; 81003; 81015; 82553; 84484; 85025; 85610; 85730; 87040; 87086; 87186; 93005; 93306; 93880; 96365; A4216; A4353; G8978-GP-CK; G8979-GP-CJ; G8987-GO-CJ; G8988-GO-CI; G9168-GN-CM; G9169-GN-CJ; J0360; J0744; J1644; J1815; J1956